=== PATIENT | female | born 1935 | race Caucasian/White ===

== ENCOUNTER 2020-07-11 08:23 | Inpatient (IN) | payer OTHER ==
[2020-07-11] MEDS ORDERED: LORazepam 2 MG/ML SDV VIAL IVPUSH ONE (09:24)
[2020-07-11] MEDS ORDERED: LORazepam 2 MG/ML SDV VIAL ONE (10:01)
[2020-07-11 10:23] LABS: BASO % 0.7 % (0-2.0); HEMATOCRIT 25.5 % (32.4-45.2); HEMOGLOBIN 8.3 GM/dL (10.7-15.3); LYMPH % 9.8 % (8-40); MCH 30.4 pg (25.7-33.7); MCHC 32.7 g/dl (32.0-36.0); MEAN CELL VOLUME 92.9 fl (80-96); MEAN PLT VOLUME 8.7 fl (7.5-11.1); MONO % 5.5 % (3.8-10.2); PLATELET COUNT 353 K/MM3 (134-434); RBC 2.74 M/mm3 (3.60-5.2); RDW 18.2 % (11.6-15.6); WHITE BLOOD COUNT 8.6 K/mm3 (4.0-10.0)
[2020-07-11 10:28] LABS: EPI CELLS 15 /uL (0-25.1); HYALINE CASTS 4 /uL (0-3.1); PH,URINE 6.5 (5.0-8.0); URINE APPEARANCE CLOUDY; URINE BACTERIA 190 /uL (0-1359); URINE BILIRUBIN NEGATIVE (NEGATIVE); URINE COLOR YELLOW; URINE GLUCOSE (UA) NEGATIVE (NEGATIVE); URINE KETONE NEGATIVE (NEGATIVE); URINE LEUK ESTERASE 2+ (NEGATIVE); URINE NITRITE NEGATIVE (NEGATIVE); URINE PROTEIN 1+ (NEGATIVE); URINE RBC 28 /uL (0-23.9); URINE UROBILINOGEN 0.2 mg/dL (0.2-1.0); URINE WBC 761 /uL (0-25.8)
[2020-07-11] MEDS ORDERED: VANCOMYCIN 1 GM in D5W (PRE-DOCKED) 1,000 MG/250 ML IVPB ONE (10:33)
[2020-07-11] MEDS ORDERED: PIPERACILLIN/TAZOB 4.5 GM 4.5 GM in DEXTROSE 5%-WATER 100 ML IVPB ONE (10:33)
[2020-07-11] MEDS ORDERED: AZITHROMYCIN IVPB 500 MG in DEXTROSE 5%-WATER - 250 ML IVPB ONE (10:33)
[2020-07-11 10:34] LABS: INR 0.98 (0.83-1.09); PROTHROMBIN TIME (PATIENT) 11.9 SEC (9.7-13.0)
[2020-07-11 10:37] LABS: ACTIVATED PTT 33.4 SECONDS (25.2-36.5)
[2020-07-11 10:40] LABS: CHLORIDE 99 mmol/L (98-107); SODIUM 138 mmol/L (136-145)
[2020-07-11 10:42] LABS: ALBUMIN 2.6 g/dl (3.4-5.0); ANION GAP 3 MMOL/L (8-16); BLOOD UREA NITROGEN 27.1 mg/dL (7-18); CALCIUM 8.7 mg/dL (8.5-10.1); CO2 36 mmol/L (21-32); GLUCOSE,RANDOM 95 mg/dL (74-106)
[2020-07-11] MEDS ORDERED: SODIUM CHLORIDE 2,504 ML IV ONE (10:44)
[2020-07-11 10:45] LABS: BILIRUBIN,DIRECT 0.1 mg/dL (0.0-0.2); CREATININE 0.6 mg/dL (0.55-1.3); SGOT/AST 39 U/L (15-37); SGPT/ALT 50 U/L (13-61)
[2020-07-11 10:47] LABS: BILIRUBIN,TOTAL < 0.1 mg/dL (0.2-1); TOT PROT 6.1 g/dl (6.4-8.2)
[2020-07-11 10:48] LABS: ALK PHOS 140 U/L (45-117)
[2020-07-11 10:51] LABS: LDH 277 U/L (84-246)
[2020-07-11] MEDS ORDERED: SODIUM CHLORIDE 0.9% 500 ML INFUS.BAG IV ONE (10:59)
[2020-07-11 11:43] LABS: YEAST 2+ (NEGATIVE)
[2020-07-11] MEDS ORDERED: PIPERACILLIN/TAZOB 4.5 GM 4.5 GM/100 ML BAG IVPB ONE (12:31)
[2020-07-11] MEDS ORDERED: AZITHROMYCIN IVPB 500 MG/250 ML BAG IVPB ONE (13:17)
[2020-07-11] MEDS ORDERED: VANCOMYCIN 1 GRAM (PRE-DOCKED) 1,000 MG/250 ML BAG IVPB ONE (13:17)
[2020-07-11] MEDS ORDERED: FUROSEMIDE 40 MG/4 ML INJECTABLE VIAL IVPUSH ONE (13:19)
[2020-07-11] MEDS ORDERED: FUROSEMIDE 40 MG/4 ML INJECTABLE VIAL ONE (14:06)
[2020-07-11] MEDS ORDERED: PIPERACILLIN/TAZOB 3.375 GM 3.375 GM in DEXTROSE 5%-WATER - 50 ML IVPB SCH (18:00)
[2020-07-11] MEDS ORDERED: PIPERACILLIN/TAZOB 3.375 GM 3.375 GM/50 ML BAG IVPB ONE (18:13)
[2020-07-11] MEDS ORDERED: ACETAMINOPHEN 650 MG/20.3 ML ORAL SOLUTION (CUPS) GT PRN (18:30)
[2020-07-12] MEDS ORDERED: PIPERACILLIN/TAZOB 3.375 GM 3.375 GM/50 ML BAG IVPB ONE ×3 (02:16→18:49)
[2020-07-12] MEDS: PIPERACILLIN/TAZOB 3.375 GM 3.375 GM in DEXTROSE 5%-WATER - 50 ML IVPB SCH ×3 (02:23→19:01)
[2020-07-12] MEDS ORDERED: ATORVASTATIN CA 20 MG TABLET (FP) ONE (09:40)
[2020-07-12] MEDS ORDERED: FOLIC ACID 1 MG TABLET (FP) ONE (09:41)
[2020-07-12] MEDS ORDERED: ENOXAPARIN NA (PORCINE) 40 MG/0.4 ML DISP.SYRIN SQ ONE (09:41)
[2020-07-12] MEDS: ENOXAPARIN NA (PORCINE) 40 MG/0.4 ML DISP.SYRIN SQ SCH (10:24)
[2020-07-12] MEDS: ATORVASTATIN CA 20 MG TABLET (FP) GT SCH (10:24)
[2020-07-12] MEDS: FOLIC ACID 1 MG TABLET (FP) GT SCH (10:24)
[2020-07-12] MEDS: LEVOTHYROXINE NA 88 MCG TABLET (FP) GT SCH (10:25)
[2020-07-12] MEDS: ATENOLOL 50 MG TABLET (FP) GT SCH (10:25)
[2020-07-12] MEDS: OLANZapine 5 MG TABLET GT SCH (10:43)
[2020-07-12 17:45] LABS: CALCIUM 8.5 mg/dL (8.5-10.1)
[2020-07-12 18:02] LABS: ALBUMIN 2.5 g/dl (3.4-5.0); BILIRUBIN,TOTAL 0.3 mg/dL (0.2-1); CREATININE 0.9 mg/dL (0.55-1.3); TOT PROT 5.6 g/dl (6.4-8.2)
[2020-07-13] MEDS ORDERED: PIPERACILLIN/TAZOB 3.375 GM 3.375 GM/50 ML BAG IVPB ONE ×2 (02:15→10:38)
[2020-07-13] MEDS: PIPERACILLIN/TAZOB 3.375 GM 3.375 GM in DEXTROSE 5%-WATER - 50 ML IVPB SCH ×2 (02:22→11:00)
[2020-07-13] MEDS ORDERED: ATORVASTATIN CA 20 MG TABLET (FP) ONE (10:37)
[2020-07-13] MEDS ORDERED: ENOXAPARIN NA (PORCINE) 40 MG/0.4 ML DISP.SYRIN SQ ONE (10:38)
[2020-07-13] MEDS ORDERED: FOLIC ACID 1 MG TABLET (FP) ONE (10:38)
[2020-07-13] MEDS: FOLIC ACID 1 MG TABLET (FP) GT SCH (11:00)
[2020-07-13] MEDS: ATENOLOL 50 MG TABLET (FP) GT SCH (11:00)
[2020-07-13] MEDS: ENOXAPARIN NA (PORCINE) 40 MG/0.4 ML DISP.SYRIN SQ SCH (11:00)
[2020-07-13] MEDS: LEVOTHYROXINE NA 88 MCG TABLET (FP) GT SCH (11:00)
[2020-07-13] MEDS: OLANZapine 5 MG TABLET GT SCH (11:13)
[2020-07-13] MEDS: ATORVASTATIN CA 20 MG TABLET (FP) GT SCH (11:13)
[2020-07-13 12:27] LABS: BASO % 0.8 % (0-2.0); HEMATOCRIT 22.4 % (32.4-45.2); HEMOGLOBIN 7.5 GM/dL (10.7-15.3); LYMPH % 17.2 % (8-40); MCH 30.9 pg (25.7-33.7); MCHC 33.4 g/dl (32.0-36.0); MEAN CELL VOLUME 92.4 fl (80-96); MEAN PLT VOLUME 8.9 fl (7.5-11.1); MONO % 7.7 % (3.8-10.2); NEUT % 74.3 % (42.8-82.8); PLATELET COUNT 279 K/MM3 (134-434); RBC 2.43 M/mm3 (3.60-5.2); RDW 18.3 % (11.6-15.6)
[2020-07-13 12:40] LABS: CALCIUM 8.4 mg/dL (8.5-10.1)
[2020-07-13 12:41] LABS: BLOOD UREA NITROGEN 28.1 mg/dL (7-18)
[2020-07-13 12:44] LABS: CREATININE 0.9 mg/dL (0.55-1.3)
[2020-07-13] MEDS ORDERED: WATER IVPB ONE (15:00)
[2020-07-13] MEDS ORDERED: DAPTOMYCIN 300 MG in SODIUM CHLORIDE 50 ML IVPB ONE (15:00)
[2020-07-13] MEDS ORDERED: DEXTROSE 5% IVPB ONE (15:00)
[2020-07-13] MEDS ORDERED: DAPTOMYCIN IVPB ONE (15:00)
[2020-07-14] MEDS ORDERED: PT OWN MED DRAWER 7, Y5N ONE (09:25)
[2020-07-14] MEDS: ATORVASTATIN CA 20 MG TABLET (FP) GT SCH (10:12)
[2020-07-14] MEDS: DAPTOMYCIN 300 MG in SODIUM CHLORIDE 50 ML IVPB SCH (10:12)
[2020-07-14] MEDS: ENOXAPARIN NA (PORCINE) 40 MG/0.4 ML DISP.SYRIN SQ SCH (10:12)
[2020-07-14] MEDS: OLANZapine 5 MG TABLET GT SCH (10:13)
[2020-07-14] MEDS: FOLIC ACID 1 MG TABLET (FP) GT SCH (10:13)
[2020-07-14] MEDS: LEVOTHYROXINE NA 88 MCG TABLET (FP) GT SCH (12:31)
[2020-07-14] MEDS: ATENOLOL 50 MG TABLET (FP) GT SCH (12:31)
[2020-07-15] MEDS: LEVOTHYROXINE NA 88 MCG TABLET (FP) GT SCH (06:15)
[2020-07-15] MEDS ORDERED: PT OWN MED DRAWER 7, Y5N ONE (08:55)
[2020-07-15] MEDS: FOLIC ACID 1 MG TABLET (FP) GT SCH (09:20)
[2020-07-15] MEDS: OLANZapine 5 MG TABLET GT SCH (09:20)
[2020-07-15] MEDS: ENOXAPARIN NA (PORCINE) 40 MG/0.4 ML DISP.SYRIN SQ SCH (09:20)
[2020-07-15] MEDS: ATORVASTATIN CA 20 MG TABLET (FP) GT SCH (09:20)
[2020-07-15] MEDS: AMINO ACIDS/PROTEIN HYDROLYS 30 ML LIQUID.PKT PEG SCH (09:20)
[2020-07-15] MEDS: ATENOLOL 50 MG TABLET (FP) GT SCH (09:23)
[2020-07-15 09:34] LABS: BASO % 0.8 % (0-2.0); HEMATOCRIT 22.7 % (32.4-45.2); HEMOGLOBIN 7.3 GM/dL (10.7-15.3); LYMPH % 24.8 % (8-40); MEAN CELL VOLUME 93.7 fl (80-96); MEAN PLT VOLUME 8.7 fl (7.5-11.1); MONO % 11.6 % (3.8-10.2); NEUT % 62.8 % (42.8-82.8); PLATELET COUNT 251 K/MM3 (134-434); RBC 2.42 M/mm3 (3.60-5.2); RDW 19.3 % (11.6-15.6)
[2020-07-15 10:28] LABS: N-TERMINAL BNP 8021.6 pg/ml (5-450)
[2020-07-15] MEDS: DAPTOMYCIN 300 MG in SODIUM CHLORIDE 50 ML IVPB SCH (11:28)
[2020-07-15] MEDS ORDERED: FUROSEMIDE 40 MG/4 ML INJECTABLE VIAL IVPUSH ONE (11:45)
[2020-07-16] MEDS: LEVOTHYROXINE NA 88 MCG TABLET (FP) GT SCH (06:06)
[2020-07-16 09:01] LABS: BASO % 0.6 % (0-2.0); HEMATOCRIT 22.6 % (32.4-45.2); HEMOGLOBIN 7.3 GM/dL (10.7-15.3); MCH 30.3 pg (25.7-33.7); MCHC 32.4 g/dl (32.0-36.0); MEAN CELL VOLUME 93.6 fl (80-96); MEAN PLT VOLUME 8.7 fl (7.5-11.1); MONO % 11.9 % (3.8-10.2); NEUT % 66.5 % (42.8-82.8); PLATELET COUNT 229 K/MM3 (134-434); RBC 2.41 M/mm3 (3.60-5.2); RDW 19.2 % (11.6-15.6); WHITE BLOOD COUNT 6.3 K/mm3 (4.0-10.0)
[2020-07-16] MEDS ORDERED: PT OWN MED DRAWER 7, Y5N ONE (09:17)
[2020-07-16] MEDS: ENOXAPARIN NA (PORCINE) 40 MG/0.4 ML DISP.SYRIN SQ SCH (09:19)
[2020-07-16] MEDS: AMINO ACIDS/PROTEIN HYDROLYS 30 ML LIQUID.PKT PEG SCH (09:19)
[2020-07-16] MEDS: FOLIC ACID 1 MG TABLET (FP) GT SCH (09:19)
[2020-07-16] MEDS: FUROSEMIDE 40 MG/4 ML INJECTABLE VIAL IVPUSH SCH (09:19)
[2020-07-16] MEDS: ATORVASTATIN CA 20 MG TABLET (FP) GT SCH (09:19)
[2020-07-16] MEDS: OLANZapine 5 MG TABLET GT SCH (09:19)
[2020-07-16] MEDS: ATENOLOL 50 MG TABLET (FP) GT SCH (09:20)
[2020-07-16 09:23] LABS: ALBUMIN 2.6 g/dl (3.4-5.0); BLOOD UREA NITROGEN 33.5 mg/dL (7-18); CALCIUM 8.8 mg/dL (8.5-10.1); MAGNESIUM 2.1 mg/dL (1.8-2.4)
[2020-07-16 09:26] LABS: CREATININE 0.9 mg/dL (0.55-1.3)
[2020-07-16 09:27] LABS: BILIRUBIN,TOTAL 0.3 mg/dL (0.2-1); TOT PROT 6.1 g/dl (6.4-8.2)
[2020-07-16 09:29] LABS: PHOSPHOROUS 4.7 mg/dL (2.5-4.9)
[2020-07-16] MEDS ORDERED: PNEUMOC 13-VAL CONJ-DIP CRM/PF 0.5 ML DISP.SYRIN IM ONE (10:00)
[2020-07-16] MEDS: DAPTOMYCIN 300 MG in SODIUM CHLORIDE 50 ML IVPB SCH (11:40)
[2020-07-17] MEDS: LEVOTHYROXINE NA 88 MCG TABLET (FP) GT SCH (06:37)
[2020-07-17] MEDS ORDERED: PT OWN MED DRAWER 7, Y5N ONE ×2 (09:17→11:17)
[2020-07-17] MEDS: DAPTOMYCIN 300 MG in SODIUM CHLORIDE 50 ML IVPB SCH (09:57)
[2020-07-17] MEDS: FUROSEMIDE 40 MG/4 ML INJECTABLE VIAL IVPUSH SCH ×2 (09:58→15:18)
[2020-07-17] MEDS: FOLIC ACID 1 MG TABLET (FP) GT SCH (09:58)
[2020-07-17] MEDS: OLANZapine 5 MG TABLET GT SCH (10:00)
[2020-07-17] MEDS: ATORVASTATIN CA 20 MG TABLET (FP) GT SCH (10:00)
[2020-07-17] MEDS: ENOXAPARIN NA (PORCINE) 40 MG/0.4 ML DISP.SYRIN SQ SCH (10:00)
[2020-07-17] MEDS: AMINO ACIDS/PROTEIN HYDROLYS 30 ML LIQUID.PKT PEG SCH ×2 (10:02→17:54)
[2020-07-17] MEDS: ATENOLOL 50 MG TABLET (FP) GT SCH (12:28)
[2020-07-17 15:04] VITALS: BMI 31.9
[2020-07-17 16:16] LABS: HEMATOCRIT 21.8 % (32.4-45.2); HEMOGLOBIN 7.2 GM/dL (10.7-15.3); MCH 30.9 pg (25.7-33.7); MCHC 33.1 g/dl (32.0-36.0); MEAN CELL VOLUME 93.2 fl (80-96); MEAN PLT VOLUME 8.9 fl (7.5-11.1); PLATELET COUNT 181 K/MM3 (134-434); RBC 2.34 M/mm3 (3.60-5.2); RDW 18.8 % (11.6-15.6); WHITE BLOOD COUNT 7.9 K/mm3 (4.0-10.0)
[2020-07-18] MEDS: FUROSEMIDE 40 MG/4 ML INJECTABLE VIAL IVPUSH SCH ×2 (05:09→13:46)
[2020-07-18] MEDS: LEVOTHYROXINE NA 88 MCG TABLET (FP) GT SCH (06:17)
[2020-07-18] MEDS ORDERED: PT OWN MED DRAWER 7, Y5N ONE (08:55)
[2020-07-18] MEDS: AMINO ACIDS/PROTEIN HYDROLYS 30 ML LIQUID.PKT PEG SCH ×2 (08:58→18:04)
[2020-07-18] MEDS: ATORVASTATIN CA 20 MG TABLET (FP) GT SCH (08:59)
[2020-07-18] MEDS: ENOXAPARIN NA (PORCINE) 40 MG/0.4 ML DISP.SYRIN SQ SCH (08:59)
[2020-07-18] MEDS: ATENOLOL 50 MG TABLET (FP) GT SCH (08:59)
[2020-07-18] MEDS: OLANZapine 5 MG TABLET GT SCH (08:59)
[2020-07-18] MEDS: FOLIC ACID 1 MG TABLET (FP) GT SCH (08:59)
[2020-07-18 10:02] LABS: BASO % 0.6 % (0-2.0); HEMATOCRIT 21.2 % (32.4-45.2); HEMOGLOBIN 7.1 GM/dL (10.7-15.3); LYMPH % 16.7 % (8-40); MCH 30.8 pg (25.7-33.7); MCHC 33.3 g/dl (32.0-36.0); MEAN CELL VOLUME 92.5 fl (80-96); MEAN PLT VOLUME 8.5 fl (7.5-11.1); MONO % 10.4 % (3.8-10.2); NEUT % 72.3 % (42.8-82.8); PLATELET COUNT 167 K/MM3 (134-434); RBC 2.29 M/mm3 (3.60-5.2); RDW 19.4 % (11.6-15.6); WHITE BLOOD COUNT 6.1 K/mm3 (4.0-10.0)
[2020-07-18 10:22] LABS: CALCIUM 8.8 mg/dL (8.5-10.1)
[2020-07-18 10:23] LABS: ALBUMIN 2.5 g/dl (3.4-5.0); BLOOD UREA NITROGEN 40.2 mg/dL (7-18)
[2020-07-18 10:24] LABS: MAGNESIUM 1.8 mg/dL (1.8-2.4)
[2020-07-18 10:26] LABS: CREATININE 0.9 mg/dL (0.55-1.3); PHOSPHOROUS 4.2 mg/dL (2.5-4.9)
[2020-07-18 10:27] LABS: TOT PROT 5.9 g/dl (6.4-8.2)
[2020-07-18 10:30] LABS: BILIRUBIN,TOTAL 0.3 mg/dL (0.2-1)
[2020-07-18 11:05] LABS: PH,URINE 6.5 (5.0-8.0); URINE APPEARANCE CLEAR; URINE BILIRUBIN NEGATIVE (NEGATIVE); URINE COLOR YELLOW; URINE GLUCOSE (UA) NEGATIVE (NEGATIVE); URINE KETONE NEGATIVE (NEGATIVE); URINE LEUK ESTERASE NEGATIVE (NEGATIVE); URINE NITRITE NEGATIVE (NEGATIVE); URINE PROTEIN NEGATIVE (NEGATIVE); URINE UROBILINOGEN 0.2 mg/dL (0.2-1.0)
[2020-07-18] MEDS: DAPTOMYCIN 300 MG in SODIUM CHLORIDE 50 ML IVPB SCH (11:13)
[2020-07-19] MEDS: FUROSEMIDE 40 MG/4 ML INJECTABLE VIAL IVPUSH SCH ×2 (06:37→14:21)
[2020-07-19] MEDS: LEVOTHYROXINE NA 88 MCG TABLET (FP) GT SCH (06:38)
[2020-07-19 09:24] LABS: BASO % 0.7 % (0-2.0); HEMATOCRIT 21.4 % (32.4-45.2); MCH 30.6 pg (25.7-33.7); MEAN CELL VOLUME 92.8 fl (80-96); MONO % 10.1 % (3.8-10.2); NEUT % 72.2 % (42.8-82.8); PLATELET COUNT 164 K/MM3 (134-434); RDW 18.9 % (11.6-15.6); WHITE BLOOD COUNT 5.2 K/mm3 (4.0-10.0)
[2020-07-19] MEDS: AMINO ACIDS/PROTEIN HYDROLYS 30 ML LIQUID.PKT PEG SCH ×2 (09:46→17:04)
[2020-07-19] MEDS: OLANZapine 5 MG TABLET GT SCH (09:46)
[2020-07-19] MEDS: ATORVASTATIN CA 20 MG TABLET (FP) GT SCH (09:46)
[2020-07-19] MEDS: FOLIC ACID 1 MG TABLET (FP) GT SCH (09:46)
[2020-07-19 09:50] LABS: ALBUMIN 2.5 g/dl (3.4-5.0)
[2020-07-19 09:51] LABS: CALCIUM 8.8 mg/dL (8.5-10.1)
[2020-07-19] MEDS: ATENOLOL 50 MG TABLET (FP) GT SCH (09:54)
[2020-07-19 09:55] LABS: CREATININE 0.9 mg/dL (0.55-1.3); PHOSPHOROUS 4.2 mg/dL (2.5-4.9)
[2020-07-19 09:56] LABS: BILIRUBIN,TOTAL 0.3 mg/dL (0.2-1); TOT PROT 5.9 g/dl (6.4-8.2)
[2020-07-19] MEDS: DAPTOMYCIN 300 MG in SODIUM CHLORIDE 50 ML IVPB SCH ×2 (10:54→11:53)
[2020-07-19] MEDS ORDERED: IRON SUCROSE INJECTION 200 MG in SODIUM CHLORIDE 90 ML IVPB ONE (16:00)
[2020-07-20] MEDS: LEVOTHYROXINE NA 88 MCG TABLET (FP) GT SCH (06:12)
[2020-07-20] MEDS ORDERED: PT OWN MED DRAWER 7, Y5N ONE (09:11)
[2020-07-20] MEDS: ENOXAPARIN NA (PORCINE) 40 MG/0.4 ML DISP.SYRIN SQ SCH (09:14)
[2020-07-20] MEDS: FOLIC ACID 1 MG TABLET (FP) GT SCH (09:14)
[2020-07-20] MEDS: ATORVASTATIN CA 20 MG TABLET (FP) GT SCH (09:14)
[2020-07-20] MEDS: ATENOLOL 50 MG TABLET (FP) GT SCH (09:14)
[2020-07-20] MEDS: OLANZapine 5 MG TABLET GT SCH (09:14)
[2020-07-20] MEDS: FUROSEMIDE 40 MG TABLET (FP) PO SCH (09:14)
[2020-07-20] MEDS: AMINO ACIDS/PROTEIN HYDROLYS 30 ML LIQUID.PKT PEG SCH ×2 (09:15→16:33)
[2020-07-20] MEDS: DAPTOMYCIN 300 MG in SODIUM CHLORIDE 50 ML IVPB SCH (09:16)
[2020-07-20 10:46] LABS: BASO % 0.8 % (0-2.0); LYMPH % 20.2 % (8-40); MCH 30.4 pg (25.7-33.7); MCHC 32.9 g/dl (32.0-36.0); MEAN CELL VOLUME 92.5 fl (80-96); MEAN PLT VOLUME 8.8 fl (7.5-11.1); MONO % 11.2 % (3.8-10.2); NEUT % 67.8 % (42.8-82.8); PLATELET COUNT 165 K/MM3 (134-434); RBC 2.27 M/mm3 (3.60-5.2); RDW 18.3 % (11.6-15.6); WHITE BLOOD COUNT 5.4 K/mm3 (4.0-10.0)
[2020-07-20 10:50] LABS: HEMOGLOBIN 6.9 GM/dL (10.7-15.3)
[2020-07-20 11:04] LABS: BLOOD UREA NITROGEN 44.1 mg/dL (7-18); CALCIUM 8.3 mg/dL (8.5-10.1)
[2020-07-20 11:08] LABS: CREATININE 0.9 mg/dL (0.55-1.3)
[2020-07-20] MEDS: LACTOBACILLUS ACIDOPHILUS 1 TABLET GT SCH (16:33)
[2020-07-21] MEDS ORDERED: amLODIPine BESYLATE 5 MG TABLET (FP) GT ONE (06:00)
[2020-07-21] MEDS: LEVOTHYROXINE NA 88 MCG TABLET (FP) GT SCH (06:09)
[2020-07-21] MEDS ORDERED: PT OWN MED DRAWER 7, Y5N ONE ×2 (09:16→10:53)
[2020-07-21] MEDS ORDERED: amLODIPine BESYLATE 10 MG TABLET (FP) PO SCH (10:00)
[2020-07-21 10:01] LABS: BASO % 1.1 % (0-2.0); HEMATOCRIT 23.4 % (32.4-45.2); HEMOGLOBIN 7.7 GM/dL (10.7-15.3); LYMPH % 20.2 % (8-40); MCH 30.1 pg (25.7-33.7); MCHC 32.9 g/dl (32.0-36.0); MEAN CELL VOLUME 91.4 fl (80-96); MEAN PLT VOLUME 9.1 fl (7.5-11.1); MONO % 10.1 % (3.8-10.2); NEUT % 68.6 % (42.8-82.8); PLATELET COUNT 160 K/MM3 (134-434); RBC 2.56 M/mm3 (3.60-5.2); RDW 17.9 % (11.6-15.6); WHITE BLOOD COUNT 4.7 K/mm3 (4.0-10.0)
[2020-07-21 10:37] LABS: CALCIUM 8.4 mg/dL (8.5-10.1)
[2020-07-21 10:38] LABS: BLOOD UREA NITROGEN 49.9 mg/dL (7-18)
[2020-07-21 10:41] LABS: CREATININE 0.9 mg/dL (0.55-1.3)
[2020-07-21] MEDS: LACTOBACILLUS ACIDOPHILUS 1 TABLET GT SCH (10:49)
[2020-07-21] MEDS: AMINO ACIDS/PROTEIN HYDROLYS 30 ML LIQUID.PKT PEG SCH (10:49)
[2020-07-21] MEDS: OLANZapine 5 MG TABLET GT SCH (10:50)
[2020-07-21] MEDS: ATORVASTATIN CA 20 MG TABLET (FP) GT SCH (10:50)
[2020-07-21] MEDS: FOLIC ACID 1 MG TABLET (FP) GT SCH (10:50)
[2020-07-21] MEDS: ATENOLOL 50 MG TABLET (FP) GT SCH (10:50)
[2020-07-21] MEDS: FUROSEMIDE 40 MG TABLET (FP) PO SCH (10:50)
[2020-07-21] MEDS: ENOXAPARIN NA (PORCINE) 40 MG/0.4 ML DISP.SYRIN SQ SCH (10:50)
[2020-07-21 12:21] VITALS: PULSE 73
[2020-07-21 15:39] VITALS: BP 183/82; TEMP 99.5
== END 2020-07-21 16:16 | DRG 207 ==
LOC: JER 08:23 → JERBED 12:33 → J5S 07-14 04:17
PROVIDERS: ADMIT Internal Medicine
PROC: 5A1955Z Respiratory Ventilation, Greater than 96 Consecutive Hours (ICD-10-PCS; principal; 2020-07-11)
PROC: 3E0G76Z Introduction of Nutritional Substance into Upper GI, Via Natural or Artificial Opening (ICD-10-PCS; 2020-07-11)
PROC: 02HV33Z Insertion of Infusion Device into Superior Vena Cava, Percutaneous Approach (ICD-10-PCS; 2020-07-16)
PROC: B548ZZA Ultrasonography of Superior Vena Cava, Guidance (ICD-10-PCS; 2020-07-16)
DX: J96.20 Acute and chronic respiratory failure, unspecified whether with hypoxia or hypercapnia (principal); T83.518A Infection and inflammatory reaction due to other urinary catheter, initial encounter; N39.0 Urinary tract infection, site not specified; Z99.11 Dependence on respirator [ventilator] status; I50.32 Chronic diastolic (congestive) heart failure; R04.2 Hemoptysis; E78.5 Hyperlipidemia, unspecified; Z93.1 Gastrostomy status; F03.90 Unspecified dementia, unspecified severity, without behavioral disturbance, psychotic disturbance, mood disturbance, and anxiety; I11.0 Hypertensive heart disease with heart failure; E03.9 Hypothyroidism, unspecified; Z93.0 Tracheostomy status; R68.0 Hypothermia, not associated with low environmental temperature; Y84.6 Urinary catheterization as the cause of abnormal reaction of the patient, or of later complication, without mention of misadventure at the time of the procedure; D64.9 Anemia, unspecified
CPT/HCPCS: 36415; 36430; 36569; 71045-TC-FY; 77001-TC-FY; 80048; 80053; 81003; 82248; 82272; 82550; 82728; 83540; 83550; 83605; 83615; 83735; 83880; 84100; 84484; 85025; 85027; 85610; 85730; 86140; 86850; 86900; 86901; 86922; 87040; 87086; 87186; 90670; 93005; 93010; 93306-TC; 94002; 99285-25; C1751; C9803; J0878; J1756; P9058; U0003

== ENCOUNTER 2020-08-03 20:29 | Inpatient (IN) | payer OTHER ==
[2020-08-03 21:10] LABS: BASO % 0.2 % (0-2.0); HEMATOCRIT 30.6 % (32.4-45.2); HEMOGLOBIN 9.9 GM/dL (10.7-15.3); LYMPH % 16.9 % (8-40); MCH 30.1 pg (25.7-33.7); MCHC 32.4 g/dl (32.0-36.0); MEAN PLT VOLUME 9.6 fl (7.5-11.1); MONO % 5.2 % (3.8-10.2); NEUT % 77.7 % (42.8-82.8); PLATELET COUNT 260 K/MM3 (134-434); RBC 3.29 M/mm3 (3.60-5.2); RDW 18.7 % (11.6-15.6); WHITE BLOOD COUNT 8.1 K/mm3 (4.0-10.0)
[2020-08-03 21:23] LABS: INR 0.98 (0.83-1.09); PROTHROMBIN TIME (PATIENT) 12.1 SEC (9.7-13.0)
[2020-08-03 21:26] LABS: ACTIVATED PTT 43.4 SECONDS (25.2-36.5)
[2020-08-03 21:32] LABS: CHLORIDE 101 mmol/L (98-107); POTASSIUM 4.8 mmol/L (3.5-5.1); SODIUM 136 mmol/L (136-145)
[2020-08-03 21:34] LABS: CALCIUM 9.2 mg/dL (8.5-10.1)
[2020-08-03 21:35] LABS: ALBUMIN 3.1 g/dl (3.4-5.0); ANION GAP 6 MMOL/L (8-16); BLOOD UREA NITROGEN 67.2 mg/dL (7-18); CO2 29 mmol/L (21-32); GLUCOSE,RANDOM 130 mg/dL (74-106)
[2020-08-03 21:38] LABS: CREATININE 0.9 mg/dL (0.55-1.3); SGOT/AST 78 U/L (15-37); SGPT/ALT 164 U/L (13-61)
[2020-08-03 21:39] LABS: BILIRUBIN,TOTAL 0.2 mg/dL (0.2-1)
[2020-08-03 21:40] LABS: TOT PROT 6.7 g/dl (6.4-8.2)
[2020-08-03 21:41] LABS: ALK PHOS 144 U/L (45-117)
[2020-08-03] MEDS ORDERED: VANCOMYCIN 1 GM in D5W (PRE-DOCKED) 1,000 MG/250 ML IVPB ONE (23:20)
[2020-08-03] MEDS ORDERED: PIPERACILLIN/TAZOB 3.375 GM 3.375 GM in DEXTROSE 5%-WATER - 50 ML IVPB ONE (23:20)
[2020-08-04] MEDS ORDERED: PIPERACILLIN/TAZOB 3.375 GM 3.375 GM/50 ML BAG IVPB ONE (00:04)
[2020-08-04] MEDS ORDERED: GLUCAGON 1 MG KIT IVPUSH ONE (00:11)
[2020-08-04] MEDS ORDERED: GLUCAGON 1 MG KIT ONE (00:14)
[2020-08-04] MEDS ORDERED: CALCIUM GLUCONATE 10% - 1,000 MG/10 ML VIAL IVPB ONE (00:16)
[2020-08-04] MEDS ORDERED: CALCIUM GLUCONATE 10% - 1,000 MG/10 ML VIAL ONE (00:23)
[2020-08-04] MEDS ORDERED: ENOXAPARIN NA (PORCINE) 40 MG/0.4 ML DISP.SYRIN SQ SCH (00:30)
[2020-08-04] MEDS ORDERED: SODIUM CHLORIDE 0.9% 500 ML INFUS.BAG IV ONE ×2 (00:52→04:03)
[2020-08-04] MEDS ORDERED: VANCOMYCIN 1 GRAM (PRE-DOCKED) 1,000 MG/250 ML BAG IVPB ONE (01:07)
[2020-08-04] MEDS ORDERED: HEPARIN NA (PORCINE) 5,000 UNITS/ML 1ML VIAL SQ SCH (02:00)
[2020-08-04] MEDS ORDERED: DOPAMINE 400 MG/D5W - 400,000 MCG/250 ML INFUS.BAG IVPB SCH (04:15)
[2020-08-04] MEDS: DOPAMINE 400 MG/D5W - 400,000 MCG/250 ML INFUS.BAG IVPB SCH ×2 (04:42→23:26)
[2020-08-04] MEDS ORDERED: SODIUM CHLORIDE 1,000 ML IV STA (06:25)
[2020-08-04] MEDS: ENOXAPARIN NA (PORCINE) 40 MG/0.4 ML DISP.SYRIN SQ SCH (09:45)
[2020-08-04] MEDS: MUPIROCIN 2% TOPICAL OINTMENT FOR DECOLONIZATION NS SCH ×2 (09:45→22:55)
[2020-08-04 09:59] LABS: BASO % 0.2 % (0-2.0); HEMATOCRIT 29.8 % (32.4-45.2); HEMOGLOBIN 9.4 GM/dL (10.7-15.3); LYMPH % 6.5 % (8-40); MCH 29.6 pg (25.7-33.7); MCHC 31.6 g/dl (32.0-36.0); MEAN CELL VOLUME 93.7 fl (80-96); MEAN PLT VOLUME 10.6 fl (7.5-11.1); MONO % 3.4 % (3.8-10.2); NEUT % 89.9 % (42.8-82.8); PLATELET COUNT 311 K/MM3 (134-434); RBC 3.19 M/mm3 (3.60-5.2); RDW 19.4 % (11.6-15.6); WHITE BLOOD COUNT 13.1 K/mm3 (4.0-10.0)
[2020-08-04] MEDS ORDERED: PIPERACILLIN/TAZOB 3.375 GM 3.375 GM in DEXTROSE 5%-WATER - 50 ML IVPB SCH (10:00)
[2020-08-04 10:03] LABS: INR 0.95 (0.83-1.09); PROTHROMBIN TIME (PATIENT) 11.5 SEC (9.7-13.0)
[2020-08-04 10:06] LABS: ACTIVATED PTT 37.6 SECONDS (25.2-36.5)
[2020-08-04 10:24] LABS: POTASSIUM 5.5 mmol/L (3.5-5.1)
[2020-08-04 10:27] LABS: BLOOD UREA NITROGEN 73.7 mg/dL (7-18); MAGNESIUM 2.5 mg/dL (1.8-2.4)
[2020-08-04 10:30] LABS: PHOSPHOROUS 5.9 mg/dL (2.5-4.9)
[2020-08-04 10:31] LABS: BILIRUBIN,TOTAL 0.3 mg/dL (0.2-1); TOT PROT 6.6 g/dl (6.4-8.2)
[2020-08-04 10:33] LABS: CALCIUM 9.8 mg/dL (8.5-10.1)
[2020-08-04 11:10] LABS: ANISOCYTOSIS 1+; MACROCYTOSIS 1+
[2020-08-04 17:30] LABS: EPI CELLS >36 /uL (0-25.1); HYALINE CASTS 20 /uL (0-3.1); PH,URINE 6.5 (5.0-8.0); URINE APPEARANCE TURBID; URINE BACTERIA 200 /uL (0-1359); URINE BILIRUBIN NEGATIVE (NEGATIVE); URINE COLOR YELLOW; URINE GLUCOSE (UA) NEGATIVE (NEGATIVE); URINE KETONE NEGATIVE (NEGATIVE); URINE LEUK ESTERASE 3+ (NEGATIVE); URINE NITRITE NEGATIVE (NEGATIVE); URINE PROTEIN 1+ (NEGATIVE); URINE RBC 132 /uL (0-23.9); URINE UROBILINOGEN 0.2 mg/dL (0.2-1.0); URINE WBC 5944 /uL (0-25.8)
[2020-08-04] MEDS: PIPERACILLIN/TAZOB 3.375 GM 3.375 GM in DEXTROSE 5%-WATER - 50 ML IVPB SCH ×2 (17:48→17:51)
[2020-08-04] MEDS ORDERED: DEXTROSE 5%-WATER - 50 ML IVPB ONE (17:50)
[2020-08-04] MEDS ORDERED: PIPERACILLIN/TAZOBACTAM 3.375 GM VIAL IVPB ONE (17:50)
[2020-08-04] MEDS: CHLORHEXIDINE GLUCONATE 4% CLEANSER FOR DECOLONIZATION TP SCH (22:55)
[2020-08-05] MEDS ORDERED: PIPERACILLIN/TAZOBACTAM 3.375 GM VIAL IVPB ONE ×3 (00:49→18:43)
[2020-08-05] MEDS ORDERED: DEXTROSE 5%-WATER - 50 ML IVPB ONE ×3 (00:49→18:43)
[2020-08-05] MEDS: PIPERACILLIN/TAZOB 3.375 GM 3.375 GM in DEXTROSE 5%-WATER - 50 ML IVPB SCH ×3 (01:01→18:49)
[2020-08-05] MEDS: DOPAMINE 400 MG/D5W - 400,000 MCG/250 ML INFUS.BAG IVPB SCH ×5 (07:07→16:08)
[2020-08-05] MEDS: ENOXAPARIN NA (PORCINE) 40 MG/0.4 ML DISP.SYRIN SQ SCH (09:56)
[2020-08-05] MEDS: MUPIROCIN 2% TOPICAL OINTMENT FOR DECOLONIZATION NS SCH (09:56)
[2020-08-05 13:14] LABS: BASO % 0.5 % (0-2.0); HEMATOCRIT 27.3 % (32.4-45.2); HEMOGLOBIN 8.9 GM/dL (10.7-15.3); LYMPH % 14.2 % (8-40); MCH 30.2 pg (25.7-33.7); MCHC 32.4 g/dl (32.0-36.0); MEAN CELL VOLUME 93.2 fl (80-96); MEAN PLT VOLUME 10.2 fl (7.5-11.1); MONO % 6.7 % (3.8-10.2); NEUT % 78.6 % (42.8-82.8); PLATELET COUNT 252 K/MM3 (134-434); RBC 2.93 M/mm3 (3.60-5.2); RDW 19.1 % (11.6-15.6); WHITE BLOOD COUNT 10.9 K/mm3 (4.0-10.0)
[2020-08-05 13:21] LABS: INR 0.98 (0.83-1.09); PROTHROMBIN TIME (PATIENT) 12.1 SEC (9.7-13.0)
[2020-08-05 13:24] LABS: ACTIVATED PTT 38.1 SECONDS (25.2-36.5)
[2020-08-05 13:27] LABS: POTASSIUM 5.6 mmol/L (3.5-5.1)
[2020-08-05 13:29] LABS: ALBUMIN 2.8 g/dl (3.4-5.0); CALCIUM 9.1 mg/dL (8.5-10.1)
[2020-08-05 13:30] LABS: BLOOD UREA NITROGEN 80.6 mg/dL (7-18); MAGNESIUM 2.7 mg/dL (1.8-2.4)
[2020-08-05 13:33] LABS: CREATININE 1.7 mg/dL (0.55-1.3); PHOSPHOROUS 6.2 mg/dL (2.5-4.9)
[2020-08-05 13:34] LABS: BILIRUBIN,TOTAL 0.7 mg/dL (0.2-1); TOT PROT 6.5 g/dl (6.4-8.2)
[2020-08-06 07:59] LABS: HEMATOCRIT 25.4 % (32.4-45.2); HEMOGLOBIN 8.5 GM/dL (10.7-15.3); MCH 30.9 pg (25.7-33.7); MCHC 33.2 g/dl (32.0-36.0); MEAN CELL VOLUME 92.9 fl (80-96); MEAN PLT VOLUME 9.1 fl (7.5-11.1); PLATELET COUNT 202 K/MM3 (134-434); RBC 2.74 M/mm3 (3.60-5.2); RDW 18.6 % (11.6-15.6); WHITE BLOOD COUNT 8.3 K/mm3 (4.0-10.0)
[2020-08-06 08:27] LABS: POTASSIUM 5.1 mmol/L (3.5-5.1)
[2020-08-06 08:36] LABS: BLOOD UREA NITROGEN 74.1 mg/dL (7-18)
[2020-08-06 08:37] LABS: CALCIUM 9.1 mg/dL (8.5-10.1); CREATININE 1.5 mg/dL (0.55-1.3); PHOSPHOROUS 5.8 mg/dL (2.5-4.9)
[2020-08-06 08:38] LABS: MAGNESIUM 2.7 mg/dL (1.8-2.4)
[2020-08-06] MEDS ORDERED: DEXTROSE 5%-WATER - 50 ML IVPB ONE (09:08)
[2020-08-06] MEDS ORDERED: PIPERACILLIN/TAZOBACTAM 3.375 GM VIAL IVPB ONE (09:08)
[2020-08-06] MEDS: PIPERACILLIN/TAZOB 3.375 GM 3.375 GM in DEXTROSE 5%-WATER - 50 ML IVPB SCH ×3 (10:24→19:05)
[2020-08-06] MEDS: ENOXAPARIN NA (PORCINE) 40 MG/0.4 ML DISP.SYRIN SQ SCH (10:24)
[2020-08-06] MEDS: MUPIROCIN 2% TOPICAL OINTMENT FOR DECOLONIZATION NS SCH ×2 (11:21→23:02)
[2020-08-06] MEDS: CHLORHEXIDINE GLUCONATE 4% CLEANSER FOR DECOLONIZATION TP SCH (23:02)
[2020-08-07] MEDS ORDERED: DEXTROSE 5%-WATER - 50 ML IVPB ONE ×2 (02:33→09:59)
[2020-08-07] MEDS ORDERED: PIPERACILLIN/TAZOBACTAM 3.375 GM VIAL IVPB ONE ×2 (02:33→09:59)
[2020-08-07] MEDS: PIPERACILLIN/TAZOB 3.375 GM 3.375 GM in DEXTROSE 5%-WATER - 50 ML IVPB SCH ×3 (03:11→18:54)
[2020-08-07] MEDS: MUPIROCIN 2% TOPICAL OINTMENT FOR DECOLONIZATION NS SCH ×2 (10:03→23:18)
[2020-08-07] MEDS: ENOXAPARIN NA (PORCINE) 40 MG/0.4 ML DISP.SYRIN SQ SCH (10:03)
[2020-08-07 12:57] LABS: BASO % 0.4 % (0-2.0); HEMATOCRIT 26.9 % (32.4-45.2); HEMOGLOBIN 8.6 GM/dL (10.7-15.3); LYMPH % 13.4 % (8-40); MCH 30.1 pg (25.7-33.7); MEAN CELL VOLUME 94.1 fl (80-96); MEAN PLT VOLUME 9.3 fl (7.5-11.1); MONO % 8.2 % (3.8-10.2); PLATELET COUNT 192 K/MM3 (134-434); RBC 2.86 M/mm3 (3.60-5.2); RDW 18.9 % (11.6-15.6)
[2020-08-07 13:10] LABS: POTASSIUM 4.8 mmol/L (3.5-5.1)
[2020-08-07 13:12] LABS: ALBUMIN 2.9 g/dl (3.4-5.0); BLOOD UREA NITROGEN 63.3 mg/dL (7-18); MAGNESIUM 2.7 mg/dL (1.8-2.4)
[2020-08-07 13:15] LABS: PHOSPHOROUS 4.9 mg/dL (2.5-4.9)
[2020-08-07 13:16] LABS: CREATININE 1.4 mg/dL (0.55-1.3)
[2020-08-07 13:17] LABS: BILIRUBIN,TOTAL 0.6 mg/dL (0.2-1); TOT PROT 6.4 g/dl (6.4-8.2)
[2020-08-07] MEDS ORDERED: DEXTROSE 50%-WATER - 25 GM/50 ML VIAL ONE (15:39)
[2020-08-07] MEDS ORDERED: DEXTROSE 50%-WATER - 25 GM/50 ML VIAL IVPUSH ONE (15:58)
[2020-08-07] MEDS: AMINO ACIDS/PROTEIN HYDROLYS 30 ML LIQUID.PKT PO SCH (17:50)
[2020-08-07] MEDS: CHLORHEXIDINE GLUCONATE 4% CLEANSER FOR DECOLONIZATION TP SCH (23:18)
[2020-08-08] MEDS: PIPERACILLIN/TAZOB 3.375 GM 3.375 GM in DEXTROSE 5%-WATER - 50 ML IVPB SCH ×3 (02:39→18:49)
[2020-08-08] MEDS ORDERED: PIPERACILLIN/TAZOBACTAM 3.375 GM VIAL IVPB ONE (08:46)
[2020-08-08] MEDS ORDERED: DEXTROSE 5%-WATER - 50 ML IVPB ONE (08:47)
[2020-08-08] MEDS: ENOXAPARIN NA (PORCINE) 40 MG/0.4 ML DISP.SYRIN SQ SCH (09:02)
[2020-08-08] MEDS: MUPIROCIN 2% TOPICAL OINTMENT FOR DECOLONIZATION NS SCH ×2 (09:03→23:02)
[2020-08-08] MEDS: AMINO ACIDS/PROTEIN HYDROLYS 30 ML LIQUID.PKT PO SCH ×2 (09:29→18:00)
[2020-08-08] MEDS ORDERED: LEVOTHYROXINE NA 88 MCG TABLET (FP) PEG ONE (10:30)
[2020-08-08 12:35] LABS: HEMATOCRIT 24.3 % (32.4-45.2); HEMOGLOBIN 7.9 GM/dL (10.7-15.3); MCH 30.4 pg (25.7-33.7); MCHC 32.7 g/dl (32.0-36.0); MEAN CELL VOLUME 93.1 fl (80-96); MEAN PLT VOLUME 8.8 fl (7.5-11.1); PLATELET COUNT 192 K/MM3 (134-434); RBC 2.61 M/mm3 (3.60-5.2); RDW 18.8 % (11.6-15.6); WHITE BLOOD COUNT 9.5 K/mm3 (4.0-10.0)
[2020-08-08 12:55] LABS: POTASSIUM 4.1 mmol/L (3.5-5.1)
[2020-08-08 12:57] LABS: BLOOD UREA NITROGEN 48.6 mg/dL (7-18)
[2020-08-08 13:01] LABS: CREATININE 1.3 mg/dL (0.55-1.3)
[2020-08-08] MEDS ORDERED: ATENOLOL 50 MG TABLET (FP) PO SCH (18:45)
[2020-08-08] MEDS: amLODIPine BESYLATE 10 MG TABLET (FP) PO SCH (18:49)
[2020-08-08] MEDS: CHLORHEXIDINE GLUCONATE 4% CLEANSER FOR DECOLONIZATION TP SCH (23:02)
[2020-08-09] MEDS: PIPERACILLIN/TAZOB 3.375 GM 3.375 GM in DEXTROSE 5%-WATER - 50 ML IVPB SCH ×2 (03:00→09:11)
[2020-08-09] MEDS: LEVOTHYROXINE NA 88 MCG TABLET (FP) PEG SCH (07:51)
[2020-08-09] MEDS: AMINO ACIDS/PROTEIN HYDROLYS 30 ML LIQUID.PKT PO SCH ×2 (08:05→18:13)
[2020-08-09] MEDS ORDERED: DEXTROSE 5%-WATER - 50 ML IVPB ONE (09:08)
[2020-08-09] MEDS ORDERED: PIPERACILLIN/TAZOBACTAM 3.375 GM VIAL IVPB ONE (09:08)
[2020-08-09] MEDS: ENOXAPARIN NA (PORCINE) 40 MG/0.4 ML DISP.SYRIN SQ SCH (09:12)
[2020-08-09] MEDS: amLODIPine BESYLATE 10 MG TABLET (FP) PO SCH (09:13)
[2020-08-09] MEDS ORDERED: hydrALAZINE HCL 20 MG/ML VIAL IVPUSH ONE (10:15)
[2020-08-09 10:40] LABS: HEMATOCRIT 24.9 % (32.4-45.2); HEMOGLOBIN 8.4 GM/dL (10.7-15.3); MCH 31.2 pg (25.7-33.7); MCHC 33.5 g/dl (32.0-36.0); MEAN CELL VOLUME 93.1 fl (80-96); MEAN PLT VOLUME 8.7 fl (7.5-11.1); PLATELET COUNT 164 K/MM3 (134-434); RBC 2.68 M/mm3 (3.60-5.2); RDW 18.8 % (11.6-15.6); WHITE BLOOD COUNT 9.4 K/mm3 (4.0-10.0)
[2020-08-09 10:56] LABS: POTASSIUM 4.4 mmol/L (3.5-5.1)
[2020-08-09 10:58] LABS: CALCIUM 9.2 mg/dL (8.5-10.1)
[2020-08-09 10:59] LABS: BLOOD UREA NITROGEN 39.2 mg/dL (7-18); MAGNESIUM 2.3 mg/dL (1.8-2.4)
[2020-08-09 11:03] LABS: PHOSPHOROUS 3.4 mg/dL (2.5-4.9)
[2020-08-09] MEDS: CHLORHEXIDINE GLUCONATE 4% CLEANSER FOR DECOLONIZATION TP SCH (22:30)
[2020-08-10] MEDS ORDERED: PIPERACILLIN/TAZOBACTAM 3.375 GM VIAL IVPB ONE (01:11)
[2020-08-10] MEDS ORDERED: DEXTROSE 5%-WATER - 50 ML IVPB ONE (01:11)
[2020-08-10] MEDS: PIPERACILLIN/TAZOB 3.375 GM 3.375 GM in DEXTROSE 5%-WATER - 50 ML IVPB SCH ×3 (01:16→17:39)
[2020-08-10] MEDS: LEVOTHYROXINE NA 88 MCG TABLET (FP) PEG SCH (06:54)
[2020-08-10] MEDS: AMINO ACIDS/PROTEIN HYDROLYS 30 ML LIQUID.PKT PO SCH ×2 (09:01→17:39)
[2020-08-10 09:22] LABS: HEMATOCRIT 26.9 % (32.4-45.2); HEMOGLOBIN 8.9 GM/dL (10.7-15.3); MCH 30.9 pg (25.7-33.7); MCHC 33.1 g/dl (32.0-36.0); MEAN CELL VOLUME 93.5 fl (80-96); MEAN PLT VOLUME 8.6 fl (7.5-11.1); PLATELET COUNT 134 K/MM3 (134-434); RBC 2.88 M/mm3 (3.60-5.2); RDW 18.8 % (11.6-15.6)
[2020-08-10 09:43] LABS: POTASSIUM 4.3 mmol/L (3.5-5.1)
[2020-08-10 09:53] LABS: CALCIUM 9.3 mg/dL (8.5-10.1)
[2020-08-10 09:54] LABS: BLOOD UREA NITROGEN 35.1 mg/dL (7-18); MAGNESIUM 2.2 mg/dL (1.8-2.4)
[2020-08-10 09:57] LABS: CREATININE 0.8 mg/dL (0.55-1.3)
[2020-08-10 09:58] LABS: PHOSPHOROUS 3.2 mg/dL (2.5-4.9)
[2020-08-10] MEDS: amLODIPine BESYLATE 10 MG TABLET (FP) PO SCH (10:08)
[2020-08-10] MEDS: ENOXAPARIN NA (PORCINE) 40 MG/0.4 ML DISP.SYRIN SQ SCH (10:08)
[2020-08-10 15:52] VITALS: BMI 29.3
[2020-08-10] MEDS: CHLORHEXIDINE GLUCONATE 4% CLEANSER FOR DECOLONIZATION TP SCH (21:44)
[2020-08-11] MEDS ORDERED: PIPERACILLIN/TAZOBACTAM 3.375 GM VIAL IVPB ONE (01:41)
[2020-08-11] MEDS ORDERED: DEXTROSE 5%-WATER - 50 ML IVPB ONE (01:41)
[2020-08-11] MEDS: PIPERACILLIN/TAZOB 3.375 GM 3.375 GM in DEXTROSE 5%-WATER - 50 ML IVPB SCH ×2 (02:45→10:55)
[2020-08-11] MEDS: LEVOTHYROXINE NA 88 MCG TABLET (FP) PEG SCH (06:46)
[2020-08-11 08:16] LABS: HEMOGLOBIN 8.9 GM/dL (10.7-15.3); MCH 30.9 pg (25.7-33.7); MCHC 32.9 g/dl (32.0-36.0); MEAN CELL VOLUME 93.9 fl (80-96); MEAN PLT VOLUME 8.8 fl (7.5-11.1); PLATELET COUNT 127 K/MM3 (134-434); RBC 2.88 M/mm3 (3.60-5.2); RDW 18.5 % (11.6-15.6); WHITE BLOOD COUNT 7.4 K/mm3 (4.0-10.0)
[2020-08-11 08:28] LABS: POTASSIUM 4.4 mmol/L (3.5-5.1)
[2020-08-11 08:33] LABS: BLOOD UREA NITROGEN 36.2 mg/dL (7-18); CALCIUM 9.8 mg/dL (8.5-10.1); MAGNESIUM 2.3 mg/dL (1.8-2.4)
[2020-08-11 08:37] LABS: CREATININE 0.8 mg/dL (0.55-1.3); PHOSPHOROUS 3.6 mg/dL (2.5-4.9)
[2020-08-11] MEDS: amLODIPine BESYLATE 10 MG TABLET (FP) PO SCH (11:00)
[2020-08-11] MEDS: AMINO ACIDS/PROTEIN HYDROLYS 30 ML LIQUID.PKT PO SCH ×2 (11:00→17:46)
[2020-08-12] MEDS: CHLORHEXIDINE GLUCONATE 4% CLEANSER FOR DECOLONIZATION TP SCH (07:15)
[2020-08-12] MEDS: LEVOTHYROXINE NA 88 MCG TABLET (FP) PEG SCH (07:15)
[2020-08-12] MEDS: PIPERACILLIN/TAZOB 3.375 GM 3.375 GM in DEXTROSE 5%-WATER - 50 ML IVPB SCH (07:58)
[2020-08-12] MEDS ORDERED: AMINO ACIDS/PROTEIN HYDROLYS 30 ML LIQUID.PKT PO SCH (08:00)
[2020-08-12] MEDS ORDERED: amLODIPine BESYLATE 10 MG TABLET (FP) PO SCH (10:00)
[2020-08-12] MEDS ORDERED: ALBUTEROL SO4 2.5/IPRATROPIUM 0.5 INH SOL 3 ML VIAL.NEB. NEB PRN (10:06)
[2020-08-12] MEDS ORDERED: ACETAMINOPHEN 325 MG TABLET (FP) PO PRN (10:07)
[2020-08-12 10:13] LABS: HEMATOCRIT 27.9 % (32.4-45.2); HEMOGLOBIN 9.3 GM/dL (10.7-15.3); MCH 31.3 pg (25.7-33.7); MCHC 33.1 g/dl (32.0-36.0); MEAN CELL VOLUME 94.6 fl (80-96); MEAN PLT VOLUME 9.1 fl (7.5-11.1); PLATELET COUNT 135 K/MM3 (134-434); RBC 2.95 M/mm3 (3.60-5.2); RDW 19.2 % (11.6-15.6); WHITE BLOOD COUNT 6.3 K/mm3 (4.0-10.0)
[2020-08-12] MEDS ORDERED: ACETAMINOPHEN 650 MG/20.3 ML ORAL SOLUTION (CUPS) PO PRN (10:16)
[2020-08-12] MEDS: amLODIPine BESYLATE 10 MG TABLET (FP) GT SCH (10:26)
[2020-08-12 10:36] LABS: POTASSIUM 4.7 mmol/L (3.5-5.1)
[2020-08-12 10:41] LABS: BLOOD UREA NITROGEN 37.9 mg/dL (7-18); CALCIUM 9.2 mg/dL (8.5-10.1)
[2020-08-12 10:45] LABS: CREATININE 0.7 mg/dL (0.55-1.3); PHOSPHOROUS 3.7 mg/dL (2.5-4.9)
[2020-08-12] MEDS ORDERED: ACETAMINOPHEN 650 MG/20.3 ML ORAL SOLUTION (CUPS) GT PRN (14:16)
[2020-08-12] MEDS ORDERED: PT OWN MED DRAWER 7, Y5N ONE (15:02)
[2020-08-12] MEDS: LISINOPRIL 5 MG TABLET PO SCH (15:44)
[2020-08-12] MEDS: AMINO ACIDS/PROTEIN HYDROLYS 30 ML LIQUID.PKT PEG SCH (16:55)
[2020-08-12] MEDS ORDERED: CHLORHEXIDINE GLUCONATE 4% CLEANSER FOR DECOLONIZATION TP SCH (22:00)
[2020-08-12] MEDS: NYSTATIN POWDER 100,000 UNITS/GM - 15 GM TOPICAL POWDER TP SCH (22:06)
[2020-08-13] MEDS: VANCOMYCIN 250 MG/5 ML ORAL SOLUTION PEG SCH ×3 (00:22→11:44)
[2020-08-13] MEDS: LEVOTHYROXINE NA 88 MCG TABLET (FP) PEG SCH (06:33)
[2020-08-13] MEDS: AMINO ACIDS/PROTEIN HYDROLYS 30 ML LIQUID.PKT PEG SCH (09:54)
[2020-08-13] MEDS: LISINOPRIL 5 MG TABLET PO SCH (09:55)
[2020-08-13] MEDS: amLODIPine BESYLATE 10 MG TABLET (FP) GT SCH (09:55)
[2020-08-13] MEDS: NYSTATIN POWDER 100,000 UNITS/GM - 15 GM TOPICAL POWDER TP SCH (11:43)
[2020-08-13 15:09] VITALS: BP 158/62; PULSE 89; TEMP 98.6
== END 2020-08-13 16:24 | DRG 870 ==
LOC: JER 20:29 → JERBED 23:52 → JICU-6 08-04 03:07 → J5S 08-12 00:28
PROVIDERS: ADMIT Internal Medicine Pulmonary Disease; ATTEND Family Medicine
PROC: 5A1955Z Respiratory Ventilation, Greater than 96 Consecutive Hours (ICD-10-PCS; principal; 2020-08-03)
PROC: 5A12012 Performance of Cardiac Output, Single, Manual (ICD-10-PCS; 2020-08-04)
DX: A41.9 Sepsis, unspecified organism (principal); I46.9 Cardiac arrest, cause unspecified; J96.20 Acute and chronic respiratory failure, unspecified whether with hypoxia or hypercapnia; R65.21 Severe sepsis with septic shock; J18.9 Pneumonia, unspecified organism; I50.32 Chronic diastolic (congestive) heart failure; R64 Cachexia; N39.0 Urinary tract infection, site not specified; E87.0 Hyperosmolality and hypernatremia; I13.0 Hypertensive heart and chronic kidney disease with heart failure and stage 1 through stage 4 chronic kidney disease, or unspecified chronic kidney disease; Z99.11 Dependence on respirator [ventilator] status; Z93.0 Tracheostomy status; Z93.1 Gastrostomy status; E78.5 Hyperlipidemia, unspecified; F03.90 Unspecified dementia, unspecified severity, without behavioral disturbance, psychotic disturbance, mood disturbance, and anxiety; R68.0 Hypothermia, not associated with low environmental temperature; I95.9 Hypotension, unspecified; R00.1 Bradycardia, unspecified; E03.9 Hypothyroidism, unspecified; N18.9 Chronic kidney disease, unspecified; D64.9 Anemia, unspecified; B96.20 Unspecified Escherichia coli [E. coli] as the cause of diseases classified elsewhere; Z68.27 Body mass index [BMI] 27.0-27.9, adult
CPT/HCPCS: 36415; 70450-TC; 71045-TC-FY; 74176-TC; 76705-TC; 80048; 80053; 81003; 82140; 82533; 82550; 82565; 82962; 83605; 83735; 84100; 84300; 84439; 84443; 84484; 85025; 85027; 85610; 85730; 86769; 87040; 87086; 87324; 87449; 93005; 93010; 94002; 99285-25; C9803; U0003

== ENCOUNTER 2020-08-23 16:27 | Inpatient (IN) | payer OTHER ==
[~2020-08-23 16:27] MED LIST: LINEZOLID 600 MG PREMIX BAG 600 MG/300 ML BAG IVPB SCH
[2020-08-23] MEDS ORDERED: PIPERACILLIN/TAZOB 3.375 GM 3.375 GM in DEXTROSE 5%-WATER - 50 ML IVPB ONE (18:15)
[2020-08-23] MEDS ORDERED: LINEZOLID 600 MG PREMIX BAG 600 MG in PREMIX 300 IVPB ONE (18:30)
[2020-08-23] MEDS ORDERED: PIPERACILLIN/TAZOB 3.375 GM 3.375 GM/50 ML BAG IVPB ONE (19:23)
[2020-08-23 19:32] LABS: HEMATOCRIT 28.8 % (32.4-45.2); HEMOGLOBIN 9.5 GM/dL (10.7-15.3); LYMPH % 18.4 % (8-40); MCH 30.9 pg (25.7-33.7); MEAN CELL VOLUME 93.5 fl (80-96); MEAN PLT VOLUME 10.1 fl (7.5-11.1); MONO % 6.3 % (3.8-10.2); NEUT % 74.3 % (42.8-82.8); PLATELET COUNT 254 K/MM3 (134-434); RBC 3.08 M/mm3 (3.60-5.2); RDW 18.3 % (11.6-15.6); WHITE BLOOD COUNT 4.4 K/mm3 (4.0-10.0)
[2020-08-23 19:41] LABS: INR 0.98 (0.83-1.09); PROTHROMBIN TIME (PATIENT) 11.9 SEC (9.7-13.0)
[2020-08-23 20:24] LABS: CHLORIDE 103 mmol/L (98-107); POTASSIUM 4.3 mmol/L (3.5-5.1); SODIUM 139 mmol/L (136-145)
[2020-08-23 20:26] LABS: CALCIUM 9.9 mg/dL (8.5-10.1)
[2020-08-23 20:27] LABS: ALBUMIN 3.3 g/dl (3.4-5.0); ANION GAP 7 MMOL/L (8-16); CO2 29 mmol/L (21-32); GLUCOSE,RANDOM 82 mg/dL (74-106)
[2020-08-23 20:30] LABS: CREATININE 0.9 mg/dL (0.55-1.3); SGOT/AST 88 U/L (15-37); SGPT/ALT 123 U/L (13-61)
[2020-08-23 20:32] LABS: BILIRUBIN,TOTAL 0.3 mg/dL (0.2-1); TOT PROT 7.4 g/dl (6.4-8.2)
[2020-08-23 20:33] LABS: ALK PHOS 196 U/L (45-117)
[2020-08-23 20:53] LABS: BLOOD UREA NITROGEN 63.7 mg/dL (7-18)
[2020-08-23 21:41] LABS: EPI CELLS 9 /uL (0-25.1); HYALINE CASTS 4 /uL (0-3.1); PH,URINE 8.5 (5.0-8.0); URINE APPEARANCE CLEAR; URINE BACTERIA 237 /uL (0-1359); URINE BILIRUBIN NEGATIVE (NEGATIVE); URINE COLOR YELLOW; URINE GLUCOSE (UA) NEGATIVE (NEGATIVE); URINE KETONE NEGATIVE (NEGATIVE); URINE LEUK ESTERASE 3+ (NEGATIVE); URINE NITRITE NEGATIVE (NEGATIVE); URINE PROTEIN NEGATIVE (NEGATIVE); URINE RBC 9 /uL (0-23.9); URINE UROBILINOGEN 0.2 mg/dL (0.2-1.0); URINE WBC 754 /uL (0-25.8)
[2020-08-23] MEDS ORDERED: DEXTROSE 5%-0.45% SALINE 1,000 ML IV SCH (23:15)
[2020-08-24] MEDS ORDERED: PIPERACILLIN/TAZOB 3.375 GM 3.375 GM/50 ML BAG IVPB ONE ×3 (01:29→18:05)
[2020-08-24] MEDS: PIPERACILLIN/TAZOB 3.375 GM 3.375 GM in DEXTROSE 5%-WATER - 50 ML IVPB SCH ×3 (01:38→18:10)
[2020-08-24 07:58] LABS: BASO % 0.9 % (0-2.0); EOS % 0.1 % (0-4.5); HEMATOCRIT 28.3 % (32.4-45.2); HEMOGLOBIN 9.5 GM/dL (10.7-15.3); LYMPH % 14.1 % (8-40); MCH 31.2 pg (25.7-33.7); MCHC 33.5 g/dl (32.0-36.0); MEAN CELL VOLUME 93.1 fl (80-96); MEAN PLT VOLUME 10.1 fl (7.5-11.1); MONO % 11.5 % (3.8-10.2); NEUT % 73.4 % (42.8-82.8); PLATELET COUNT 278 K/MM3 (134-434); RBC 3.04 M/mm3 (3.60-5.2); RDW 18.8 % (11.6-15.6); WHITE BLOOD COUNT 6.1 K/mm3 (4.0-10.0)
[2020-08-24 08:13] LABS: POTASSIUM 5.3 mmol/L (3.5-5.1)
[2020-08-24 08:16] LABS: ALBUMIN 3.2 g/dl (3.4-5.0); BLOOD UREA NITROGEN 71.7 mg/dL (7-18); CALCIUM 9.4 mg/dL (8.5-10.1)
[2020-08-24 08:19] LABS: CREATININE 1.5 mg/dL (0.55-1.3)
[2020-08-24 08:21] LABS: BILIRUBIN,TOTAL 0.4 mg/dL (0.2-1)
[2020-08-24 08:24] LABS: TOT PROT 7.3 g/dl (6.4-8.2)
[2020-08-24] MEDS: LINEZOLID 600 MG PREMIX BAG 600 MG/300 ML BAG IVPB SCH ×2 (10:00→20:48)
[2020-08-24] MEDS: LEVOTHYROXINE SODIUM 100 MCG VIAL IVPUSH SCH (10:40)
[2020-08-24] MEDS: ENOXAPARIN NA (PORCINE) 40 MG/0.4 ML DISP.SYRIN SQ SCH (10:40)
[2020-08-24] MEDS: DEXTROSE 5%-0.45% SALINE 1,000 ML IV SCH (12:05)
[2020-08-24] MEDS: LINEZOLID 600 MG PREMIX BAG 600 MG in PREMIX 300 IVPB SCH (22:56)
[2020-08-25] MEDS ORDERED: PIPERACILLIN/TAZOB 3.375 GM 3.375 GM/50 ML BAG IVPB ONE ×2 (02:30→09:41)
[2020-08-25] MEDS: PIPERACILLIN/TAZOB 3.375 GM 3.375 GM in DEXTROSE 5%-WATER - 50 ML IVPB SCH ×3 (02:32→17:00)
[2020-08-25 06:59] LABS: BASO % 1.2 % (0-2.0); HEMATOCRIT 25.8 % (32.4-45.2); HEMOGLOBIN 8.8 GM/dL (10.7-15.3); LYMPH % 25.3 % (8-40); MCH 31.6 pg (25.7-33.7); MEAN CELL VOLUME 92.9 fl (80-96); MEAN PLT VOLUME 9.8 fl (7.5-11.1); NEUT % 62.5 % (42.8-82.8); PLATELET COUNT 232 K/MM3 (134-434); RBC 2.78 M/mm3 (3.60-5.2); RDW 18.4 % (11.6-15.6); WHITE BLOOD COUNT 3.2 K/mm3 (4.0-10.0)
[2020-08-25 07:32] LABS: ALBUMIN 2.8 g/dl (3.4-5.0); BLOOD UREA NITROGEN 65.9 mg/dL (7-18); CALCIUM 9.1 mg/dL (8.5-10.1)
[2020-08-25 07:35] LABS: CREATININE 1.6 mg/dL (0.55-1.3)
[2020-08-25 07:37] LABS: TOT PROT 6.7 g/dl (6.4-8.2)
[2020-08-25] MEDS: LEVOTHYROXINE SODIUM 100 MCG VIAL IVPUSH SCH (09:10)
[2020-08-25] MEDS: LINEZOLID 600 MG PREMIX BAG 600 MG in PREMIX 300 IVPB SCH (09:30)
[2020-08-25] MEDS ORDERED: ENOXAPARIN NA (PORCINE) 40 MG/0.4 ML DISP.SYRIN SQ ONE (09:41)
[2020-08-25] MEDS: ENOXAPARIN NA (PORCINE) 40 MG/0.4 ML DISP.SYRIN SQ SCH (09:46)
[2020-08-25] MEDS: DEXTROSE 5%-0.45% SALINE 1,000 ML IV SCH ×2 (13:24→22:16)
[2020-08-25] MEDS ORDERED: ALBUTEROL SO4 2.5/IPRATROPIUM 0.5 INH SOL 3 ML VIAL.NEB. NEB PRN (13:45)
[2020-08-25] MEDS ORDERED: ACETAMINOPHEN 160 MG/5 ML *Children Solution PO PRN (13:46)
[2020-08-25] MEDS ORDERED: ACETAMINOPHEN 650 MG/20.3 ML ORAL SOLUTION (CUPS) PO PRN (13:51)
[2020-08-25] MEDS ORDERED: DEXTROSE 5%-WATER - 50 ML IVPB ONE (16:54)
[2020-08-25] MEDS ORDERED: PIPERACILLIN/TAZOBACTAM 3.375 GM VIAL IVPB ONE (16:54)
[2020-08-25] MEDS: AMINO ACIDS/PROTEIN HYDROLYS 30 ML LIQUID.PKT PEG SCH (17:01)
[2020-08-25 19:19] LABS: EPI CELLS 10 /uL (0-25.1); HYALINE CASTS 2 /uL (0-3.1); PH,URINE 7.5 (5.0-8.0); URINE APPEARANCE CLOUDY; URINE BACTERIA 403 /uL (0-1359); URINE BILIRUBIN NEGATIVE (NEGATIVE); URINE COLOR YELLOW; URINE GLUCOSE (UA) NEGATIVE (NEGATIVE); URINE KETONE NEGATIVE (NEGATIVE); URINE LEUK ESTERASE 3+ (NEGATIVE); URINE NITRITE NEGATIVE (NEGATIVE); URINE PROTEIN TRACE (NEGATIVE); URINE RBC 11 /uL (0-23.9); URINE UROBILINOGEN 0.2 mg/dL (0.2-1.0); URINE WBC 2133 /uL (0-25.8)
[2020-08-25] MEDS: FERROUS SO4 300 MG/5 ML ORAL SOLN UNIT DOSE CUPS GT SCH (22:15)
[2020-08-26] MEDS ORDERED: PIPERACILLIN/TAZOBACTAM 3.375 GM VIAL IVPB ONE ×3 (01:06→17:16)
[2020-08-26] MEDS ORDERED: DEXTROSE 5%-WATER - 50 ML IVPB ONE ×3 (01:06→17:16)
[2020-08-26] MEDS: PIPERACILLIN/TAZOB 3.375 GM 3.375 GM in DEXTROSE 5%-WATER - 50 ML IVPB SCH ×4 (01:34→17:22)
[2020-08-26 08:48] LABS: BASO % 0.9 % (0-2.0); HEMATOCRIT 23.7 % (32.4-45.2); HEMOGLOBIN 8.1 GM/dL (10.7-15.3); LYMPH % 23.7 % (8-40); MCH 31.7 pg (25.7-33.7); MCHC 34.1 g/dl (32.0-36.0); MEAN CELL VOLUME 92.9 fl (80-96); MEAN PLT VOLUME 9.5 fl (7.5-11.1); MONO % 12.1 % (3.8-10.2); NEUT % 63.3 % (42.8-82.8); PLATELET COUNT 200 K/MM3 (134-434); RBC 2.55 M/mm3 (3.60-5.2); RDW 18.6 % (11.6-15.6); WHITE BLOOD COUNT 3.6 K/mm3 (4.0-10.0)
[2020-08-26 09:11] LABS: POTASSIUM 3.6 mmol/L (3.5-5.1)
[2020-08-26 09:15] LABS: ALBUMIN 2.4 g/dl (3.4-5.0); CALCIUM 8.9 mg/dL (8.5-10.1)
[2020-08-26 09:19] LABS: CREATININE 1.4 mg/dL (0.55-1.3)
[2020-08-26 09:20] LABS: BILIRUBIN,TOTAL 0.5 mg/dL (0.2-1); TOT PROT 5.9 g/dl (6.4-8.2)
[2020-08-26] MEDS ORDERED: PT OWN MED DRAWER 7, Y5N ONE ×2 (09:58→22:12)
[2020-08-26] MEDS: FOLIC ACID 1 MG TABLET (FP) GT SCH (10:15)
[2020-08-26] MEDS: AMINO ACIDS/PROTEIN HYDROLYS 30 ML LIQUID.PKT PEG SCH (10:15)
[2020-08-26] MEDS: amLODIPine BESYLATE 10 MG TABLET (FP) GT SCH (10:15)
[2020-08-26] MEDS: ATORVASTATIN CA 20 MG TABLET (FP) GT SCH (10:15)
[2020-08-26] MEDS: FERROUS SO4 300 MG/5 ML ORAL SOLN UNIT DOSE CUPS GT SCH (10:15)
[2020-08-26] MEDS: ENOXAPARIN NA (PORCINE) 40 MG/0.4 ML DISP.SYRIN SQ SCH (10:16)
[2020-08-26] MEDS: LEVOTHYROXINE SODIUM 100 MCG VIAL IVPUSH SCH (10:16)
[2020-08-26] MEDS: ATENOLOL 50 MG TABLET (FP) GT SCH (10:17)
[2020-08-26] MEDS: DEXTROSE 5%-0.45% SALINE 1,000 ML IV SCH ×3 (10:17→22:33)
[2020-08-26 11:01] VITALS: BMI 29.0
[2020-08-26] MEDS: LINEZOLID 600 MG PREMIX BAG 600 MG in PREMIX 300 IVPB SCH (12:17)
[2020-08-27] MEDS: FERROUS SO4 300 MG/5 ML ORAL SOLN UNIT DOSE CUPS GT SCH ×2 (00:06→09:31)
[2020-08-27] MEDS ORDERED: PIPERACILLIN/TAZOBACTAM 3.375 GM VIAL IVPB ONE ×3 (01:36→18:06)
[2020-08-27] MEDS ORDERED: DEXTROSE 5%-WATER - 50 ML IVPB ONE ×3 (01:36→18:07)
[2020-08-27] MEDS: PIPERACILLIN/TAZOB 3.375 GM 3.375 GM in DEXTROSE 5%-WATER - 50 ML IVPB SCH ×3 (01:45→18:18)
[2020-08-27] MEDS ORDERED: AMINO ACIDS/PROTEIN HYDROLYS 30 ML LIQUID.PKT PEG SCH (08:00)
[2020-08-27] MEDS ORDERED: PT OWN MED DRAWER 7, Y5N ONE (09:26)
[2020-08-27] MEDS: FOLIC ACID 1 MG TABLET (FP) GT SCH (09:31)
[2020-08-27] MEDS: amLODIPine BESYLATE 10 MG TABLET (FP) GT SCH (09:31)
[2020-08-27] MEDS: ENOXAPARIN NA (PORCINE) 40 MG/0.4 ML DISP.SYRIN SQ SCH (09:31)
[2020-08-27] MEDS: ATORVASTATIN CA 20 MG TABLET (FP) GT SCH (09:32)
[2020-08-27] MEDS: LEVOTHYROXINE SODIUM 100 MCG VIAL IVPUSH SCH (09:32)
[2020-08-27] MEDS: ATENOLOL 50 MG TABLET (FP) GT SCH (09:32)
[2020-08-27] MEDS ORDERED: FLU VACCINE (FLULAVAL) PF 60 MCG/0.5 ML SYRINGE 2020-2021 IM ONE (10:00)
[2020-08-27 10:09] LABS: BASO % 0.8 % (0-2.0); HEMATOCRIT 25.5 % (32.4-45.2); HEMOGLOBIN 8.4 GM/dL (10.7-15.3); LYMPH % 21.7 % (8-40); MCH 30.9 pg (25.7-33.7); MCHC 32.9 g/dl (32.0-36.0); MEAN PLT VOLUME 9.7 fl (7.5-11.1); MONO % 11.1 % (3.8-10.2); NEUT % 66.4 % (42.8-82.8); PLATELET COUNT 194 K/MM3 (134-434); RBC 2.71 M/mm3 (3.60-5.2); RDW 18.4 % (11.6-15.6); WHITE BLOOD COUNT 4.8 K/mm3 (4.0-10.0)
[2020-08-27 10:28] LABS: POTASSIUM 3.7 mmol/L (3.5-5.1)
[2020-08-27 10:36] LABS: ALBUMIN 2.3 g/dl (3.4-5.0)
[2020-08-27 10:38] LABS: CALCIUM 8.7 mg/dL (8.5-10.1)
[2020-08-27 10:39] LABS: BLOOD UREA NITROGEN 46.4 mg/dL (7-18)
[2020-08-27 10:42] LABS: BILIRUBIN,TOTAL 0.2 mg/dL (0.2-1); CREATININE 1.1 mg/dL (0.55-1.3); TOT PROT 5.7 g/dl (6.4-8.2)
[2020-08-27 17:32] VITALS: BP 133/73; PULSE 66; TEMP 97.3
[2020-08-27] MEDS: DEXTROSE 5%-0.45% SALINE 1,000 ML IV SCH (19:27)
== END 2020-08-27 20:11 | DRG 870 ==
LOC: JER 16:27 → JERBED 21:22 → J5S 08-25 15:11
PROVIDERS: ADMIT Internal Medicine; ATTEND Family Medicine
PROC: 5A1955Z Respiratory Ventilation, Greater than 96 Consecutive Hours (ICD-10-PCS; principal; 2020-08-23)
PROC: 0D20XUZ Change Feeding Device in Upper Intestinal Tract, External Approach (ICD-10-PCS; 2020-08-25)
DX: A41.9 Sepsis, unspecified organism (principal); N30.00 Acute cystitis without hematuria; N17.9 Acute kidney failure, unspecified; J96.10 Chronic respiratory failure, unspecified whether with hypoxia or hypercapnia; I50.32 Chronic diastolic (congestive) heart failure; Z99.11 Dependence on respirator [ventilator] status; K94.23 Gastrostomy malfunction; T85.528A Displacement of other gastrointestinal prosthetic devices, implants and grafts, initial encounter; R68.0 Hypothermia, not associated with low environmental temperature; F03.90 Unspecified dementia, unspecified severity, without behavioral disturbance, psychotic disturbance, mood disturbance, and anxiety; E03.9 Hypothyroidism, unspecified; F17.210 Nicotine dependence, cigarettes, uncomplicated; Z93.0 Tracheostomy status
CPT/HCPCS: 36415; 49450; 71045-TC-FY; 76775-TC; 80053; 81003; 82436; 82565; 83605; 84133; 84300; 84484; 85025; 85610; 85730; 87040; 87086; 93005; 93010; 94002; 99285-25; C9803; U0003

== ENCOUNTER 2020-11-25 07:11 | Inpatient (IN) | payer OTHER ==
[2020-11-25 08:42] LABS: VENOUS BASE EXCESS 2.8 mmol/L (-2-2); VENOUS O2 SATURATION 67.2 % (70-80); VENOUS PCO2 57.6 mmHg (38-52); VENOUS PH 7.331 (7.310-7.410)
[2020-11-25 08:49] LABS: BASO % 0.3 % (0-2.0); HEMOGLOBIN 9.9 GM/dL (10.7-15.3); LYMPH % 1.7 % (8-40); MCH 30.2 pg (25.7-33.7); MCHC 33.1 g/dl (32.0-36.0); MEAN PLT VOLUME 8.8 fl (7.5-11.1); MONO % 1.7 % (3.8-10.2); NEUT % 96.3 % (42.8-82.8); PLATELET COUNT 457 K/MM3 (134-434); RDW 14.8 % (11.6-15.6); WHITE BLOOD COUNT 21.3 K/mm3 (4.0-10.0)
[2020-11-25] MEDS ORDERED: SODIUM CHLORIDE FOR INHALATION 3 ML VIAL.NEB IH ONE (08:49)
[2020-11-25 08:53] LABS: EPI CELLS >36 /uL (0-25.1); HYALINE CASTS 12 /uL (0-3.1); URINE APPEARANCE TURBID; URINE BACTERIA 1012 /uL (0-1359); URINE BILIRUBIN NEGATIVE (NEGATIVE); URINE COLOR YELLOW; URINE GLUCOSE (UA) NEGATIVE (NEGATIVE); URINE KETONE NEGATIVE (NEGATIVE); URINE LEUK ESTERASE 3+ (NEGATIVE); URINE NITRITE NEGATIVE (NEGATIVE); URINE PROTEIN 1+ (NEGATIVE); URINE UROBILINOGEN 0.2 mg/dL (0.2-1.0); URINE WBC 4961 /uL (0-25.8)
[2020-11-25 08:56] LABS: INR 1.04 (0.83-1.09); PROTHROMBIN TIME (PATIENT) 12.8 SEC (9.7-13.0)
[2020-11-25 09:17] LABS: CHLORIDE 94 mmol/L (98-107); SODIUM 134 mmol/L (136-145)
[2020-11-25 09:20] LABS: ALBUMIN 2.6 g/dl (3.4-5.0); ANION GAP 10 MMOL/L (8-16); BLOOD UREA NITROGEN 41.2 mg/dL (7-18); CALCIUM 9.4 mg/dL (8.5-10.1); CO2 29 mmol/L (21-32); GLUCOSE,RANDOM 242 mg/dL (74-106)
[2020-11-25 09:24] LABS: BILIRUBIN,TOTAL 0.4 mg/dL (0.2-1); SGOT/AST 29 U/L (15-37); SGPT/ALT 20 U/L (13-61)
[2020-11-25 09:26] LABS: ALK PHOS 111 U/L (45-117); LACTIC ACID 4.1 mmol/L (0.4-2.0)
[2020-11-25] MEDS ORDERED: LACTATED RINGERS SOLUTION 1000 ML INFUS.BAG IV ONE (09:30)
[2020-11-25] MEDS ORDERED: PIPERACILLIN/TAZOB 3.375 GM 3.375 GM in DEXTROSE 5%-WATER - 50 ML IVPB ONE (09:31)
[2020-11-25] MEDS ORDERED: AZTREONAM 2 GM in DEXTROSE 5%-WATER 100 ML IVPB ONE (09:38)
[2020-11-25] MEDS ORDERED: PIPERACILLIN/TAZOB 3.375 GM 3.375 GM/50 ML BAG IVPB ONE ×2 (09:46→17:52)
[2020-11-25 09:53] LABS: URINE RBC 59.3 /uL (0-23.9)
[2020-11-25 10:53] LABS: ANISOCYTOSIS 0; MACROCYTOSIS 0; PLATELET ESTIMATE INCREASED
[2020-11-25] MEDS ORDERED: ACETAMINOPHEN 1000 MG/100 ML VIAL (NON FORMULARY) IVPB ONE (15:53)
[2020-11-25] MEDS ORDERED: ACETAMINOPHEN INJECTION 100 ML IVPB ONE (15:57)
[2020-11-25] MEDS ORDERED: ACETAMINOPHEN 325 MG TABLET (FP) PO PRN (16:15)
[2020-11-25] MEDS ORDERED: D5-1/2NS+20 MEQ KCL - 1,000 ML IV SCH (16:30)
[2020-11-25] MEDS ORDERED: SODIUM CHLORIDE 0.45% 1,000 ML IV SCH (16:30)
[2020-11-25] MEDS ORDERED: VANCOMYCIN 1 GRAM (PRE-DOCKED) 1,000 MG/250 ML BAG IVPB ONE ×2 (16:50→17:42)
[2020-11-25] MEDS: PIPERACILLIN/TAZOB 3.375 GM 3.375 GM in DEXTROSE 5%-WATER - 50 ML IVPB SCH (18:00)
[2020-11-25] MEDS: AMINO ACIDS/PROTEIN HYDROLYS 30 ML LIQUID.PKT PEG SCH (18:55)
[2020-11-25] MEDS ORDERED: SODIUM CHLORIDE 1,000 ML IV SCH (21:45)
[2020-11-25 22:29] LABS: CALCIUM 8.7 mg/dL (8.5-10.1)
[2020-11-25 22:30] LABS: BLOOD UREA NITROGEN 46.2 mg/dL (7-18)
[2020-11-25 22:33] LABS: CREATININE 1.1 mg/dL (0.55-1.3)
[2020-11-25 22:35] LABS: BILIRUBIN,TOTAL 0.6 mg/dL (0.2-1); TOT PROT 5.8 g/dl (6.4-8.2)
[2020-11-25 22:41] LABS: ALBUMIN 2.1 g/dl (3.4-5.0)
[2020-11-25] MEDS ORDERED: SODIUM CHLORIDE 500 ML IV STA (23:01)
[2020-11-26] MEDS ORDERED: PIPERACILLIN/TAZOBACTAM 3.375 GM VIAL IVPB ONE ×3 (01:32→16:50)
[2020-11-26] MEDS ORDERED: DEXTROSE 5%-WATER - 50 ML IVPB ONE ×3 (01:32→16:50)
[2020-11-26] MEDS: PIPERACILLIN/TAZOB 3.375 GM 3.375 GM in DEXTROSE 5%-WATER - 50 ML IVPB SCH ×3 (02:07→17:07)
[2020-11-26] MEDS ORDERED: VANCOMYCIN/WATER 1,250 MG/250 ML BAG IVPB SCH ×2 (06:39→07:00)
[2020-11-26] MEDS ORDERED: PT OWN MED DRAWER 7, Y5N ONE ×2 (09:22→10:58)
[2020-11-26] MEDS: SODIUM CHLORIDE 1,000 ML IV SCH (09:28)
[2020-11-26] MEDS: AMINO ACIDS/PROTEIN HYDROLYS 30 ML LIQUID.PKT PEG SCH ×2 (09:35→17:07)
[2020-11-26] MEDS: ENOXAPARIN NA (PORCINE) 40 MG/0.4 ML DISP.SYRIN SQ SCH (09:35)
[2020-11-26] MEDS: LEVOTHYROXINE NA 100 MCG TABLET (FP) GT SCH (09:35)
[2020-11-26] MEDS: amLODIPine BESYLATE 10 MG TABLET (FP) GT SCH (09:35)
[2020-11-26] MEDS ORDERED: VANCOMYCIN/WATER BAGS 1,250 MG/250 ML BAG IVPB ONE (09:44)
[2020-11-26] MEDS ORDERED: ATENOLOL 25 MG TABLET (FP) GT SCH (10:00)
[2020-11-26] MEDS ORDERED: ATENOLOL 50 MG TABLET (FP) GT SCH (10:00)
[2020-11-26] MEDS ORDERED: FERROUS SO4 300 MG/5 ML ORAL SOLN UNIT DOSE CUPS GT SCH (10:15)
[2020-11-26] MEDS: ACETAMINOPHEN 650 MG/20.3 ML ORAL SOLUTION (CUPS) GT PRN ×2 (11:00→17:11)
[2020-11-26 11:53] LABS: BASO % 0.1 % (0-2.0); HEMATOCRIT 23.6 % (32.4-45.2); HEMOGLOBIN 7.8 GM/dL (10.7-15.3); LYMPH % 1.6 % (8-40); MCHC 32.9 g/dl (32.0-36.0); MEAN CELL VOLUME 91.1 fl (80-96); MEAN PLT VOLUME 8.5 fl (7.5-11.1); MONO % 0.9 % (3.8-10.2); NEUT % 97.4 % (42.8-82.8); PLATELET COUNT 307 K/MM3 (134-434); RBC 2.59 M/mm3 (3.60-5.2)
[2020-11-26 11:59] LABS: WHITE BLOOD COUNT 39.9 K/mm3 (4.0-10.0)
[2020-11-26 12:19] LABS: ALBUMIN 2.1 g/dl (3.4-5.0); CALCIUM 8.5 mg/dL (8.5-10.1)
[2020-11-26 12:20] LABS: BLOOD UREA NITROGEN 48.2 mg/dL (7-18)
[2020-11-26 12:23] LABS: PHOSPHOROUS 3.3 mg/dL (2.5-4.9)
[2020-11-26 12:25] LABS: BILIRUBIN,TOTAL 0.6 mg/dL (0.2-1); TOT PROT 5.7 g/dl (6.4-8.2)
[2020-11-26 12:29] LABS: ANISOCYTOSIS 1+; MACROCYTOSIS 0; PLATELET ESTIMATE NORMAL
[2020-11-26 12:54] LABS: CREATININE 1.2 mg/dL (0.55-1.3)
[2020-11-26] MEDS: NYSTATIN POWDER 100,000 UNITS/GM - 15 GM TOPICAL POWDER TP SCH ×2 (16:03→22:34)
[2020-11-26] MEDS: VANCOMYCIN 250 MG/5 ML ORAL SOLUTION GT SCH ×2 (17:08→23:43)
[2020-11-26] MEDS: ATORVASTATIN CA 20 MG TABLET (FP) GT SCH (22:34)
[2020-11-26] MEDS: FERROUS SO4 300 MG/5 ML ORAL SOLN UNIT DOSE CUPS GT SCH (22:34)
[2020-11-26] MEDS: VANCOMYCIN 1 GRAM (PRE-DOCKED) 1,000 MG/250 ML BAG IVPB SCH (22:37)
[2020-11-27] MEDS ORDERED: PIPERACILLIN/TAZOBACTAM 3.375 GM VIAL IVPB ONE ×3 (01:57→16:53)
[2020-11-27] MEDS ORDERED: DEXTROSE 5%-WATER - 50 ML IVPB ONE ×3 (01:58→16:53)
[2020-11-27] MEDS: PIPERACILLIN/TAZOB 3.375 GM 3.375 GM in DEXTROSE 5%-WATER - 50 ML IVPB SCH ×3 (02:33→17:05)
[2020-11-27] MEDS: VANCOMYCIN 250 MG/5 ML ORAL SOLUTION GT SCH ×4 (05:30→23:15)
[2020-11-27] MEDS: ACETAMINOPHEN 650 MG/20.3 ML ORAL SOLUTION (CUPS) GT PRN ×2 (05:30→17:05)
[2020-11-27] MEDS ORDERED: PT OWN MED DRAWER 7, Y5N ONE (10:09)
[2020-11-27] MEDS: AMINO ACIDS/PROTEIN HYDROLYS 30 ML LIQUID.PKT PEG SCH ×2 (10:12→17:05)
[2020-11-27] MEDS: ENOXAPARIN NA (PORCINE) 40 MG/0.4 ML DISP.SYRIN SQ SCH (10:12)
[2020-11-27] MEDS: LEVOTHYROXINE NA 100 MCG TABLET (FP) GT SCH (10:12)
[2020-11-27] MEDS: NYSTATIN POWDER 100,000 UNITS/GM - 15 GM TOPICAL POWDER TP SCH ×2 (10:12→22:18)
[2020-11-27] MEDS: amLODIPine BESYLATE 10 MG TABLET (FP) GT SCH (10:12)
[2020-11-27] MEDS: ATENOLOL 50 MG TABLET (FP) GT SCH (10:12)
[2020-11-27] MEDS: SODIUM CHLORIDE 1,000 ML IV SCH (10:12)
[2020-11-27] MEDS: FERROUS SO4 300 MG/5 ML ORAL SOLN UNIT DOSE CUPS GT SCH ×2 (10:12→22:18)
[2020-11-27 11:46] LABS: BASO % 0.2 % (0-2.0); EOS % 0.1 % (0-4.5); HEMATOCRIT 22.1 % (32.4-45.2); HEMOGLOBIN 7.2 GM/dL (10.7-15.3); LYMPH % 1.8 % (8-40); MCH 29.9 pg (25.7-33.7); MCHC 32.3 g/dl (32.0-36.0); MEAN CELL VOLUME 92.6 fl (80-96); MEAN PLT VOLUME 9.2 fl (7.5-11.1); MONO % 1.1 % (3.8-10.2); NEUT % 96.8 % (42.8-82.8); PLATELET COUNT 279 K/MM3 (134-434); RBC 2.39 M/mm3 (3.60-5.2); RDW 14.9 % (11.6-15.6)
[2020-11-27 11:47] LABS: CHLORIDE 101 mmol/L (98-107); SODIUM 137 mmol/L (136-145)
[2020-11-27 11:49] LABS: ALBUMIN 1.9 g/dl (3.4-5.0); CALCIUM 8.7 mg/dL (8.5-10.1)
[2020-11-27 11:50] LABS: BLOOD UREA NITROGEN 54.1 mg/dL (7-18); CO2 23 mmol/L (21-32); GLUCOSE,RANDOM 130 mg/dL (74-106)
[2020-11-27 11:52] LABS: SGPT/ALT 17 U/L (13-61); WHITE BLOOD COUNT 32.3 K/mm3 (4.0-10.0)
[2020-11-27 11:53] LABS: CREATININE 1.2 mg/dL (0.55-1.3); SGOT/AST 22 U/L (15-37)
[2020-11-27 11:55] LABS: ALK PHOS 121 U/L (45-117); BILIRUBIN,TOTAL 0.4 mg/dL (0.2-1); TOT PROT 5.6 g/dl (6.4-8.2)
[2020-11-27 11:58] LABS: ANION GAP 12 MMOL/L (8-16)
[2020-11-27] MEDS: VANCOMYCIN 1 GRAM (PRE-DOCKED) 1,000 MG/250 ML BAG IVPB SCH (11:59)
[2020-11-27 12:15] LABS: ANISOCYTOSIS 1+; MACROCYTOSIS 0; PLATELET ESTIMATE NORMAL
[2020-11-27] MEDS ORDERED: POTASSIUM CHLORIDE ORAL LIQUID 20 MEQ/15 ML PO ONE (12:29)
[2020-11-27] MEDS: KCL 10 MEQ IVPB 10 MEQ/100 ML INFUS.BAG IVPB SCH ×3 (12:46→16:20)
[2020-11-27 14:24] LABS: IRON SERUM 14 ug/dL (50-175); TOTAL IRON BINDING CAPACITY 103 ug/dL (250-450)
[2020-11-27] MEDS: ATORVASTATIN CA 20 MG TABLET (FP) GT SCH (22:18)
[2020-11-28] MEDS ORDERED: PIPERACILLIN/TAZOBACTAM 3.375 GM VIAL IVPB ONE ×2 (01:14→10:21)
[2020-11-28] MEDS ORDERED: DEXTROSE 5%-WATER - 50 ML IVPB ONE ×3 (01:14→14:31)
[2020-11-28] MEDS: PIPERACILLIN/TAZOB 3.375 GM 3.375 GM in DEXTROSE 5%-WATER - 50 ML IVPB SCH ×2 (02:24→10:40)
[2020-11-28] MEDS: VANCOMYCIN 250 MG/5 ML ORAL SOLUTION GT SCH ×4 (05:51→23:27)
[2020-11-28 09:00] LABS: BASO % 0.2 % (0-2.0); LYMPH % 2.6 % (8-40); MCH 30.7 pg (25.7-33.7); MCHC 33.3 g/dl (32.0-36.0); MEAN CELL VOLUME 92.2 fl (80-96); MEAN PLT VOLUME 8.8 fl (7.5-11.1); MONO % 2.4 % (3.8-10.2); NEUT % 94.8 % (42.8-82.8); PLATELET COUNT 268 K/MM3 (134-434); RBC 2.28 M/mm3 (3.60-5.2); RDW 15.1 % (11.6-15.6)
[2020-11-28 09:30] LABS: ALBUMIN 1.7 g/dl (3.4-5.0); BLOOD UREA NITROGEN 47.6 mg/dL (7-18); MAGNESIUM 2.1 mg/dL (1.8-2.4)
[2020-11-28 09:33] LABS: CALCIUM 8.6 mg/dL (8.5-10.1)
[2020-11-28 09:35] LABS: BILIRUBIN,TOTAL 0.5 mg/dL (0.2-1); TOT PROT 5.4 g/dl (6.4-8.2)
[2020-11-28] MEDS ORDERED: PT OWN MED DRAWER 7, Y5N ONE (10:21)
[2020-11-28] MEDS: ATENOLOL 50 MG TABLET (FP) GT SCH (10:40)
[2020-11-28] MEDS: FERROUS SO4 300 MG/5 ML ORAL SOLN UNIT DOSE CUPS GT SCH ×2 (10:40→21:27)
[2020-11-28] MEDS: NYSTATIN POWDER 100,000 UNITS/GM - 15 GM TOPICAL POWDER TP SCH ×2 (10:40→21:27)
[2020-11-28] MEDS: LEVOTHYROXINE NA 100 MCG TABLET (FP) GT SCH (10:40)
[2020-11-28] MEDS: amLODIPine BESYLATE 10 MG TABLET (FP) GT SCH (10:40)
[2020-11-28] MEDS: ENOXAPARIN NA (PORCINE) 40 MG/0.4 ML DISP.SYRIN SQ SCH (10:40)
[2020-11-28] MEDS: AMINO ACIDS/PROTEIN HYDROLYS 30 ML LIQUID.PKT PEG SCH ×2 (10:40→18:02)
[2020-11-28] MEDS: ACETAMINOPHEN 650 MG/20.3 ML ORAL SOLUTION (CUPS) GT PRN (10:41)
[2020-11-28 11:53] LABS: ANISOCYTOSIS 1+; MACROCYTOSIS 0; PLATELET ESTIMATE NORMAL; TOXIC GRANULATION 2+
[2020-11-28] MEDS: guaiFENesin/D-M SUGAR-FREE/ACLHOL-FREE 118 ML BOTTLE GT PRN ×2 (12:13→18:04)
[2020-11-28] MEDS ORDERED: cefTRIAXone SODIUM 1 GM VIAL ONE (14:31)
[2020-11-28] MEDS: VANCOMYCIN 1 GRAM (PRE-DOCKED) 1,000 MG/250 ML BAG IVPB SCH (14:33)
[2020-11-28] MEDS: CEFTRIAXONE 1 GM in DEXTROSE 5%-WATER - 50 ML IVPB SCH (14:33)
[2020-11-28] MEDS: ALBUTEROL SO4 2.5/IPRATROPIUM 0.5 INH SOL 3 ML VIAL.NEB. NEB PRN (20:10)
[2020-11-28] MEDS: ATORVASTATIN CA 20 MG TABLET (FP) GT SCH (21:27)
[2020-11-29] MEDS: ALBUTEROL SO4 2.5/IPRATROPIUM 0.5 INH SOL 3 ML VIAL.NEB. NEB PRN (02:35)
[2020-11-29] MEDS: VANCOMYCIN 250 MG/5 ML ORAL SOLUTION GT SCH ×3 (05:58→18:23)
[2020-11-29] MEDS ORDERED: DEXTROSE 5%-WATER - 50 ML IVPB ONE (09:22)
[2020-11-29] MEDS ORDERED: PT OWN MED DRAWER 7, Y5N ONE (09:22)
[2020-11-29] MEDS ORDERED: cefTRIAXone SODIUM 1 GM VIAL ONE (09:22)
[2020-11-29] MEDS: ACETAMINOPHEN 650 MG/20.3 ML ORAL SOLUTION (CUPS) GT PRN ×2 (10:09→20:37)
[2020-11-29] MEDS: ATENOLOL 50 MG TABLET (FP) GT SCH (10:09)
[2020-11-29] MEDS: amLODIPine BESYLATE 10 MG TABLET (FP) GT SCH (10:10)
[2020-11-29] MEDS: LEVOTHYROXINE NA 100 MCG TABLET (FP) GT SCH (10:10)
[2020-11-29] MEDS: AMINO ACIDS/PROTEIN HYDROLYS 30 ML LIQUID.PKT PEG SCH ×2 (10:10→18:21)
[2020-11-29] MEDS: CEFTRIAXONE 1 GM in DEXTROSE 5%-WATER - 50 ML IVPB SCH (10:10)
[2020-11-29] MEDS: ENOXAPARIN NA (PORCINE) 40 MG/0.4 ML DISP.SYRIN SQ SCH (10:10)
[2020-11-29] MEDS: FERROUS SO4 300 MG/5 ML ORAL SOLN UNIT DOSE CUPS GT SCH ×2 (10:10→22:25)
[2020-11-29] MEDS: NYSTATIN POWDER 100,000 UNITS/GM - 15 GM TOPICAL POWDER TP SCH ×2 (10:20→22:25)
[2020-11-29 10:45] LABS: BASO % 0.4 % (0-2.0); HEMATOCRIT 20.3 % (32.4-45.2); LYMPH % 7.7 % (8-40); MCH 30.6 pg (25.7-33.7); MCHC 33.2 g/dl (32.0-36.0); MEAN PLT VOLUME 8.6 fl (7.5-11.1); MONO % 6.2 % (3.8-10.2); NEUT % 85.7 % (42.8-82.8); PLATELET COUNT 262 K/MM3 (134-434); RBC 2.21 M/mm3 (3.60-5.2); RDW 15.2 % (11.6-15.6); WHITE BLOOD COUNT 10.4 K/mm3 (4.0-10.0)
[2020-11-29 10:50] LABS: CALCIUM 8.7 mg/dL (8.5-10.1); HEMOGLOBIN 6.7 GM/dL (10.7-15.3)
[2020-11-29 10:51] LABS: ALBUMIN 1.7 g/dl (3.4-5.0); BLOOD UREA NITROGEN 47.6 mg/dL (7-18)
[2020-11-29 10:54] LABS: CREATININE 0.8 mg/dL (0.55-1.3)
[2020-11-29 10:55] LABS: BILIRUBIN,TOTAL 0.2 mg/dL (0.2-1); TOT PROT 5.3 g/dl (6.4-8.2)
[2020-11-29] MEDS: VANCOMYCIN 1 GRAM (PRE-DOCKED) 1,000 MG/250 ML BAG IVPB SCH (12:23)
[2020-11-29] MEDS ORDERED: ATENOLOL 25 MG TABLET (FP) GT ONE (20:31)
[2020-11-29] MEDS: ATORVASTATIN CA 20 MG TABLET (FP) GT SCH (22:25)
[2020-11-30] MEDS: VANCOMYCIN 250 MG/5 ML ORAL SOLUTION GT SCH ×5 (00:06→23:06)
[2020-11-30] MEDS ORDERED: PT OWN MED DRAWER 7, Y5N ONE ×2 (01:09→11:17)
[2020-11-30] MEDS: guaiFENesin/D-M SUGAR-FREE/ACLHOL-FREE 118 ML BOTTLE GT PRN (01:26)
[2020-11-30] MEDS ORDERED: amLODIPine BESYLATE 5 MG TABLET (FP) PO ONE (05:58)
[2020-11-30 10:45] LABS: BASO % 0.3 % (0-2.0); EOS % 0.2 % (0-4.5); HEMATOCRIT 26.8 % (32.4-45.2); HEMOGLOBIN 8.8 GM/dL (10.7-15.3); MCH 29.7 pg (25.7-33.7); MCHC 32.8 g/dl (32.0-36.0); MEAN CELL VOLUME 90.5 fl (80-96); MEAN PLT VOLUME 8.6 fl (7.5-11.1); MONO % 5.8 % (3.8-10.2); NEUT % 85.7 % (42.8-82.8); PLATELET COUNT 311 K/MM3 (134-434); RBC 2.97 M/mm3 (3.60-5.2); RDW 16.3 % (11.6-15.6); WHITE BLOOD COUNT 11.8 K/mm3 (4.0-10.0)
[2020-11-30 11:04] LABS: CALCIUM 9.4 mg/dL (8.5-10.1)
[2020-11-30 11:05] LABS: ALBUMIN 1.9 g/dl (3.4-5.0); BLOOD UREA NITROGEN 34.6 mg/dL (7-18)
[2020-11-30 11:08] LABS: CREATININE 0.6 mg/dL (0.55-1.3)
[2020-11-30 11:09] LABS: BILIRUBIN,TOTAL 0.2 mg/dL (0.2-1); TOT PROT 5.9 g/dl (6.4-8.2)
[2020-11-30] MEDS ORDERED: DEXTROSE 5%-WATER - 50 ML IVPB ONE (11:18)
[2020-11-30] MEDS ORDERED: cefTRIAXone SODIUM 1 GM VIAL ONE (11:18)
[2020-11-30] MEDS: NYSTATIN POWDER 100,000 UNITS/GM - 15 GM TOPICAL POWDER TP SCH ×2 (11:24→23:07)
[2020-11-30] MEDS: CEFTRIAXONE 1 GM in DEXTROSE 5%-WATER - 50 ML IVPB SCH (11:24)
[2020-11-30] MEDS: AMINO ACIDS/PROTEIN HYDROLYS 30 ML LIQUID.PKT PEG SCH ×2 (11:24→17:28)
[2020-11-30] MEDS: LEVOTHYROXINE NA 100 MCG TABLET (FP) GT SCH (11:25)
[2020-11-30] MEDS: FERROUS SO4 300 MG/5 ML ORAL SOLN UNIT DOSE CUPS GT SCH ×2 (11:26→23:06)
[2020-11-30] MEDS: ATENOLOL 50 MG TABLET (FP) GT SCH (11:26)
[2020-11-30] MEDS: ENOXAPARIN NA (PORCINE) 40 MG/0.4 ML DISP.SYRIN SQ SCH (11:26)
[2020-11-30 11:49] LABS: ANISOCYTOSIS 1+; MACROCYTOSIS 0; PLATELET ESTIMATE NORMAL
[2020-11-30] MEDS: amLODIPine BESYLATE 10 MG TABLET (FP) GT SCH (12:34)
[2020-11-30] MEDS: VANCOMYCIN 1 GRAM (PRE-DOCKED) 1,000 MG/250 ML BAG IVPB SCH (12:34)
[2020-11-30] MEDS ORDERED: ALBUTEROL SO4 2.5/IPRATROPIUM 0.5 INH SOL 3 ML VIAL.NEB. NEB ONE (19:38)
[2020-11-30] MEDS: ALBUTEROL SO4 2.5/IPRATROPIUM 0.5 INH SOL 3 ML VIAL.NEB. NEB PRN (19:55)
[2020-11-30] MEDS: ATORVASTATIN CA 20 MG TABLET (FP) GT SCH (23:06)
[2020-12-01] MEDS: VANCOMYCIN 250 MG/5 ML ORAL SOLUTION GT SCH ×3 (06:22→17:52)
[2020-12-01 09:40] LABS: BASO % 0.5 % (0-2.0); HEMOGLOBIN 9.7 GM/dL (10.7-15.3); LYMPH % 9.7 % (8-40); MCH 30.1 pg (25.7-33.7); MCHC 33.5 g/dl (32.0-36.0); MEAN CELL VOLUME 89.9 fl (80-96); MEAN PLT VOLUME 8.1 fl (7.5-11.1); MONO % 5.1 % (3.8-10.2); NEUT % 84.7 % (42.8-82.8); PLATELET COUNT 380 K/MM3 (134-434); RBC 3.23 M/mm3 (3.60-5.2); RDW 16.6 % (11.6-15.6); WHITE BLOOD COUNT 11.4 K/mm3 (4.0-10.0)
[2020-12-01 10:09] LABS: CALCIUM 9.8 mg/dL (8.5-10.1)
[2020-12-01 10:12] LABS: CREATININE 0.5 mg/dL (0.55-1.3)
[2020-12-01 10:13] LABS: BILIRUBIN,TOTAL 0.6 mg/dL (0.2-1); TOT PROT 6.3 g/dl (6.4-8.2)
[2020-12-01] MEDS ORDERED: PT OWN MED DRAWER 7, Y5N ONE (10:51)
[2020-12-01] MEDS ORDERED: DEXTROSE 5%-WATER - 50 ML IVPB ONE (10:52)
[2020-12-01] MEDS ORDERED: cefTRIAXone SODIUM 1 GM VIAL ONE (10:52)
[2020-12-01] MEDS: AMINO ACIDS/PROTEIN HYDROLYS 30 ML LIQUID.PKT PEG SCH ×2 (11:08→17:52)
[2020-12-01] MEDS: amLODIPine BESYLATE 10 MG TABLET (FP) GT SCH (11:08)
[2020-12-01] MEDS: CEFTRIAXONE 1 GM in DEXTROSE 5%-WATER - 50 ML IVPB SCH (11:09)
[2020-12-01] MEDS: ENOXAPARIN NA (PORCINE) 40 MG/0.4 ML DISP.SYRIN SQ SCH (11:09)
[2020-12-01] MEDS: LEVOTHYROXINE NA 100 MCG TABLET (FP) GT SCH (11:09)
[2020-12-01] MEDS: ATENOLOL 50 MG TABLET (FP) GT SCH (11:10)
[2020-12-01] MEDS: FERROUS SO4 300 MG/5 ML ORAL SOLN UNIT DOSE CUPS GT SCH ×2 (11:10→21:54)
[2020-12-01] MEDS: NYSTATIN POWDER 100,000 UNITS/GM - 15 GM TOPICAL POWDER TP SCH ×2 (11:43→21:54)
[2020-12-01 12:22] LABS: ANISOCYTOSIS 0; MACROCYTOSIS 0; PLATELET ESTIMATE NORMAL
[2020-12-01] MEDS: VANCOMYCIN 1 GRAM (PRE-DOCKED) 1,000 MG/250 ML BAG IVPB SCH (14:42)
[2020-12-01 17:10] VITALS: BMI 28.5
[2020-12-01] MEDS: BANATROL PLUS POWDER PACKET PEG SCH (21:54)
[2020-12-01] MEDS: ATORVASTATIN CA 20 MG TABLET (FP) GT SCH (21:54)
[2020-12-01] MEDS ORDERED: BANATROL PLUS POWDER PACKET GT SCH (22:00)
[2020-12-02] MEDS: VANCOMYCIN 250 MG/5 ML ORAL SOLUTION GT SCH ×5 (00:06→23:15)
[2020-12-02] MEDS: guaiFENesin/D-M SUGAR-FREE/ACLHOL-FREE 118 ML BOTTLE GT PRN (02:14)
[2020-12-02] MEDS: BANATROL PLUS POWDER PACKET PEG SCH ×3 (05:03→21:22)
[2020-12-02 09:22] LABS: HEMATOCRIT 28.2 % (32.4-45.2); HEMOGLOBIN 9.5 GM/dL (10.7-15.3); MCH 30.4 pg (25.7-33.7); MCHC 33.6 g/dl (32.0-36.0); MEAN CELL VOLUME 90.6 fl (80-96); MEAN PLT VOLUME 8.8 fl (7.5-11.1); PLATELET COUNT 408 K/MM3 (134-434); RBC 3.11 M/mm3 (3.60-5.2); RDW 16.5 % (11.6-15.6); WHITE BLOOD COUNT 10.5 K/mm3 (4.0-10.0)
[2020-12-02] MEDS ORDERED: PT OWN MED DRAWER 7, Y5N ONE ×4 (10:51→21:03)
[2020-12-02] MEDS ORDERED: cefTRIAXone SODIUM 1 GM VIAL ONE (10:51)
[2020-12-02] MEDS ORDERED: DEXTROSE 5%-WATER - 50 ML IVPB ONE (10:51)
[2020-12-02] MEDS: MULTIVIT-MINERALS ORAL LIQUID GT SCH (11:02)
[2020-12-02] MEDS: CEFTRIAXONE 1 GM in DEXTROSE 5%-WATER - 50 ML IVPB SCH (11:03)
[2020-12-02] MEDS: ENOXAPARIN NA (PORCINE) 40 MG/0.4 ML DISP.SYRIN SQ SCH (11:05)
[2020-12-02] MEDS: AMINO ACIDS/PROTEIN HYDROLYS 30 ML LIQUID.PKT PEG SCH ×2 (11:05→18:14)
[2020-12-02] MEDS: FERROUS SO4 300 MG/5 ML ORAL SOLN UNIT DOSE CUPS GT SCH ×2 (11:05→21:22)
[2020-12-02] MEDS: ATENOLOL 50 MG TABLET (FP) GT SCH (11:06)
[2020-12-02] MEDS: LEVOTHYROXINE NA 100 MCG TABLET (FP) GT SCH (11:06)
[2020-12-02] MEDS: amLODIPine BESYLATE 10 MG TABLET (FP) GT SCH (11:06)
[2020-12-02] MEDS: NYSTATIN POWDER 100,000 UNITS/GM - 15 GM TOPICAL POWDER TP SCH ×2 (11:07→21:22)
[2020-12-02] MEDS: ATORVASTATIN CA 20 MG TABLET (FP) GT SCH (21:22)
[2020-12-03] MEDS ORDERED: PT OWN MED DRAWER 7, Y5N ONE ×2 (01:07→10:01)
[2020-12-03] MEDS ORDERED: guaiFENesin/D-METHORPHAN HB 10 ML UNIT-DOSE CUPS GT PRN (01:10)
[2020-12-03] MEDS: VANCOMYCIN 250 MG/5 ML ORAL SOLUTION GT SCH ×2 (06:05→11:32)
[2020-12-03] MEDS: BANATROL PLUS POWDER PACKET PEG SCH ×2 (06:05→13:55)
[2020-12-03] MEDS ORDERED: LEVOTHYROXINE NA 100 MCG TABLET (FP) GT SCH (07:00)
[2020-12-03 09:14] LABS: ALBUMIN 1.8 g/dl (3.4-5.0); CALCIUM 9.4 mg/dL (8.5-10.1)
[2020-12-03 09:17] LABS: CREATININE 0.5 mg/dL (0.55-1.3)
[2020-12-03 09:19] LABS: BILIRUBIN,TOTAL 0.3 mg/dL (0.2-1); TOT PROT 5.9 g/dl (6.4-8.2)
[2020-12-03] MEDS: FERROUS SO4 300 MG/5 ML ORAL SOLN UNIT DOSE CUPS GT SCH (10:08)
[2020-12-03] MEDS: AMINO ACIDS/PROTEIN HYDROLYS 30 ML LIQUID.PKT PEG SCH (10:09)
[2020-12-03] MEDS: NYSTATIN POWDER 100,000 UNITS/GM - 15 GM TOPICAL POWDER TP SCH (10:09)
[2020-12-03] MEDS: amLODIPine BESYLATE 10 MG TABLET (FP) GT SCH (10:09)
[2020-12-03] MEDS: MULTIVIT-MINERALS ORAL LIQUID GT SCH (10:09)
[2020-12-03] MEDS: ATENOLOL 50 MG TABLET (FP) GT SCH (10:10)
[2020-12-03 15:51] VITALS: BP 131/98; PULSE 80; TEMP 99.1
== END 2020-12-03 16:48 | DRG 870 ==
LOC: JER 07:11 → JERBED 09:39 → J5S 21:46
PROVIDERS: ADMIT Family Medicine; ATTEND Family Medicine
PROC: 5A1955Z Respiratory Ventilation, Greater than 96 Consecutive Hours (ICD-10-PCS; principal; 2020-11-25)
PROC: 3E0G76Z Introduction of Nutritional Substance into Upper GI, Via Natural or Artificial Opening (ICD-10-PCS; 2020-11-25)
PROC: 30233N1 Transfusion of Nonautologous Red Blood Cells into Peripheral Vein, Percutaneous Approach (ICD-10-PCS; 2020-11-29)
DX: A41.89 Other specified sepsis (principal); I50.32 Chronic diastolic (congestive) heart failure; J96.10 Chronic respiratory failure, unspecified whether with hypoxia or hypercapnia; Z99.11 Dependence on respirator [ventilator] status; N39.0 Urinary tract infection, site not specified; E87.2 Acidosis; E87.1 Hypo-osmolality and hyponatremia; A04.72 Enterocolitis due to Clostridium difficile, not specified as recurrent; E78.5 Hyperlipidemia, unspecified; I11.0 Hypertensive heart disease with heart failure; E03.9 Hypothyroidism, unspecified; F03.90 Unspecified dementia, unspecified severity, without behavioral disturbance, psychotic disturbance, mood disturbance, and anxiety; Z93.1 Gastrostomy status; E87.6 Hypokalemia; D64.9 Anemia, unspecified
CPT/HCPCS: 36415; 36430; 70450-TC; 71045-TC-FY; 74018-TC-FY; 80053; 81003; 82140; 82272; 82436; 82550; 82570; 82607; 82728; 82803; 83540; 83550; 83605; 83735; 83930; 83935; 84100; 84133; 84300; 84439; 84443; 84484; 85025; 85027; 85610; 85730; 86850; 86870; 86900; 86901; 86902; 86922; 87040; 87045; 87046; 87070; 87086; 87186; 87205; 87324; 87449; 87493; 87899; 93005; 93010; 94002; 94640; 99285-25; C9803; G0480; J0131; P9058; U0003; U0005

== ENCOUNTER 2021-01-14 18:06 | Inpatient (IN) | payer OTHER ==
[2021-01-14] MEDS ORDERED: ATROPINE SULFATE 1 MG/10 ML DISP.SYRIN ONE (18:47)
[2021-01-14] MEDS ORDERED: ALBUTEROL SO4 2.5/IPRATROPIUM 0.5 INH SOL 3 ML VIAL.NEB. NEB ONE ×4 (18:51→19:51)
[2021-01-14] MEDS ORDERED: GLUCAGON 1 MG KIT ONE ×2 (18:55→19:02)
[2021-01-14] MEDS ORDERED: SODIUM CHLORIDE 0.9% 500 ML INFUS.BAG IV ONE (19:01)
[2021-01-14] MEDS ORDERED: ATROPINE SULFATE 1 MG/10 ML DISP.SYRIN IVPUSH ONE (19:01)
[2021-01-14] MEDS ORDERED: DEXTROSE 50%-WATER - 25 GM/50 ML VIAL IVPUSH ONE (19:01)
[2021-01-14] MEDS ORDERED: GLUCAGON 1 MG KIT IVPUSH ONE (19:01)
[2021-01-14] MEDS ORDERED: CALCIUM GLUCONATE 10% - 1,000 MG/10 ML VIAL IVPUSH ONE (19:01)
[2021-01-14 19:35] LABS: VENOUS BASE EXCESS -3.9 mmol/L (-2-2); VENOUS O2 SATURATION 46.6 % (70-80); VENOUS PCO2 55.5 mmHg (38-52); VENOUS PH 7.252 (7.310-7.410)
[2021-01-14 19:40] LABS: BASO % 0.2 % (0-2.0); HEMATOCRIT 30.5 % (32.4-45.2); HEMOGLOBIN 9.9 GM/dL (10.7-15.3); LYMPH % 2.9 % (8-40); MCH 29.9 pg (25.7-33.7); MCHC 32.5 g/dl (32.0-36.0); MEAN CELL VOLUME 92.1 fl (80-96); MEAN PLT VOLUME 9.5 fl (7.5-11.1); MONO % 1.3 % (3.8-10.2); NEUT % 95.6 % (42.8-82.8); PLATELET COUNT 126 10^3/uL (134-434); RBC 3.31 M/mm3 (3.60-5.2); RDW 19.1 % (11.6-15.6)
[2021-01-14 19:46] LABS: INR 0.95 (0.83-1.09); PROTHROMBIN TIME (PATIENT) 11.7 SEC (9.7-13.0)
[2021-01-14 19:49] LABS: ACTIVATED PTT 39.1 SECONDS (25.2-36.5)
[2021-01-14 19:53] LABS: WHITE BLOOD COUNT 32.7 K/mm3 (4.0-10.0)
[2021-01-14] MEDS ORDERED: VANCOMYCIN 1 GM in D5W (PRE-DOCKED) 1,000 MG/250 ML IVPB ONE (19:53)
[2021-01-14 19:56] LABS: CHLORIDE 94 mmol/L (98-107); SODIUM 128 mmol/L (136-145)
[2021-01-14] MEDS ORDERED: PIPERACILLIN/TAZOB 4.5 GM 4.5 GM in DEXTROSE 5%-WATER 100 ML IVPB ONE (19:56)
[2021-01-14 19:59] LABS: ALBUMIN 2.6 g/dl (3.4-5.0); BLOOD UREA NITROGEN 81.6 mg/dL (7-18); CALCIUM 8.2 mg/dL (8.5-10.1); CO2 21 mmol/L (21-32); MAGNESIUM 2.9 mg/dL (1.8-2.4)
[2021-01-14 20:02] LABS: SGOT/AST 32 U/L (15-37); SGPT/ALT 61 U/L (13-61)
[2021-01-14 20:03] LABS: CREATININE 1.5 mg/dL (0.55-1.3)
[2021-01-14 20:04] LABS: BILIRUBIN,TOTAL 0.2 mg/dL (0.2-1); TOT PROT 6.5 g/dl (6.4-8.2)
[2021-01-14 20:05] LABS: ALK PHOS 147 U/L (45-117); N-TERMINAL BNP 6338.3 pg/ml (5-450)
[2021-01-14] MEDS ORDERED: LACTATED RINGERS SOLUTION 1000 ML INFUS.BAG IV ONE ×2 (20:08→20:40)
[2021-01-14 20:10] LABS: LACTIC ACID 2.5 mmol/L (0.4-2.0)
[2021-01-14 20:10] LABS: ANION GAP 12 MMOL/L (8-16); GLUCOSE,RANDOM 39 mg/dL (74-106)
[2021-01-14] MEDS ORDERED: DOPAMINE 400 MG/D5W - 400,000 MCG/250 ML INFUS.BAG IVPB ONE (20:10)
[2021-01-14] MEDS: DOPAMINE 400 MG/D5W - 400,000 MCG/250 ML INFUS.BAG IVPB SCH (20:23)
[2021-01-14] MEDS ORDERED: LORazepam 2 MG/ML SDV VIAL ONE (21:00)
[2021-01-14 21:10] LABS: ANISOCYTOSIS 2+; MACROCYTOSIS 1+; PLATELET ESTIMATE DECREASED; TOXIC GRANULATION 1+
[2021-01-14] MEDS ORDERED: guaiFENesin 200 MG/10 ML 10 ML UNIT-DOSE CUPS GT PRN (22:07)
[2021-01-14] MEDS ORDERED: NOREPINEPHRINE NS PREMIX 8,000 MCG/500 ML BAG IVPB SCH (22:30)
[2021-01-14 22:36] LABS: CALCIUM 8.8 mg/dL (8.5-10.1)
[2021-01-14 22:37] LABS: BLOOD UREA NITROGEN 74.8 mg/dL (7-18)
[2021-01-14 22:40] LABS: CREATININE 1.5 mg/dL (0.55-1.3)
[2021-01-14 22:41] LABS: PHOSPHOROUS 7.5 mg/dL (2.5-4.9)
[2021-01-14 23:31] LABS: HIV INTERPRETATION NEGATIVE (NEGATIVE)
[2021-01-14] MEDS ORDERED: ACETAMINOPHEN 650 MG/20.3 ML ORAL SOLUTION (CUPS) PO PRN (23:53)
[2021-01-15] MEDS ORDERED: VANCOMYCIN 250 MG/5 ML ORAL SOLUTION GT SCH
[2021-01-15] MEDS ORDERED: PIPERACILLIN/TAZOB 4.5 GM 4.5 GM/100 ML BAG IVPB ONE (00:03)
[2021-01-15] MEDS: PIPERACILLIN/TAZOB 3.375 GM 3.375 GM in DEXTROSE 5%-WATER - 50 ML IVPB SCH ×4 (01:42→17:44)
[2021-01-15] MEDS: levETIRAcetam 500 MG/5 ML INJECTION VIAL IVPB SCH ×3 (01:49→21:48)
[2021-01-15] MEDS: SODIUM CHLORIDE 1,000 ML IV SCH ×2 (01:50→18:50)
[2021-01-15] MEDS: LINEZOLID 600 MG PREMIX BAG 600 MG/300 ML BAG IVPB SCH ×2 (02:03→09:53)
[2021-01-15 02:48] LABS: EPI CELLS >36 /uL (0-25.1); HYALINE CASTS 88 /uL (0-3.1); URINE APPEARANCE TURBID; URINE BACTERIA 379 /uL (0-1359); URINE BILIRUBIN NEGATIVE (NEGATIVE); URINE COLOR DK YELLOW; URINE GLUCOSE (UA) NEGATIVE (NEGATIVE); URINE KETONE NEGATIVE (NEGATIVE); URINE LEUK ESTERASE 3+ (NEGATIVE); URINE NITRITE NEGATIVE (NEGATIVE); URINE PROTEIN 1+ (NEGATIVE); URINE UROBILINOGEN 0.2 mg/dL (0.2-1.0); URINE WBC 17857 /uL (0-25.8)
[2021-01-15] MEDS: VASOPRESSIN 40 UNITS in SODIUM CHLORIDE 98 ML IVPB SCH (03:00)
[2021-01-15] MEDS ORDERED: PIPERACILLIN/TAZOBACTAM 3.375 GM VIAL IVPB ONE ×3 (05:06→17:42)
[2021-01-15] MEDS ORDERED: DEXTROSE 5%-WATER - 50 ML IVPB ONE ×3 (05:06→17:42)
[2021-01-15 05:20] LABS: URINE CRYSTALS NONE SEEN /hpf; URINE RBC 1290.9 /uL (0-23.9); YEAST MANY (NEGATIVE)
[2021-01-15] MEDS ORDERED: HEPARIN NA (PORCINE) 5,000 UNITS/ML 1ML VIAL SQ SCH (06:00)
[2021-01-15] MEDS: LEVOTHYROXINE NA 100 MCG TABLET (FP) GT SCH (07:11)
[2021-01-15 07:23] LABS: BASO % 0.1 % (0-2.0); HEMATOCRIT 28.8 % (32.4-45.2); HEMOGLOBIN 9.3 GM/dL (10.7-15.3); LYMPH % 1.9 % (8-40); MCH 29.7 pg (25.7-33.7); MCHC 32.3 g/dl (32.0-36.0); MEAN CELL VOLUME 91.9 fl (80-96); MEAN PLT VOLUME 9.5 fl (7.5-11.1); MONO % 1.2 % (3.8-10.2); NEUT % 96.8 % (42.8-82.8); PLATELET COUNT 117 10^3/uL (134-434); RBC 3.13 M/mm3 (3.60-5.2); RDW 18.4 % (11.6-15.6)
[2021-01-15 07:25] LABS: WHITE BLOOD COUNT 43.3 K/mm3 (4.0-10.0)
[2021-01-15] MEDS: NOREPINEPHRINE NS PREMIX 8,000 MCG/500 ML BAG IVPB SCH (07:30)
[2021-01-15 07:50] LABS: CHLORIDE 99 mmol/L (98-107); SODIUM 133 mmol/L (136-145)
[2021-01-15 07:51] LABS: MAGNESIUM 2.5 mg/dL (1.8-2.4)
[2021-01-15 07:52] LABS: CALCIUM 8.3 mg/dL (8.5-10.1)
[2021-01-15 07:53] LABS: ALBUMIN 2.5 g/dl (3.4-5.0); ANION GAP 12 MMOL/L (8-16); CO2 22 mmol/L (21-32); GLUCOSE,RANDOM 73 mg/dL (74-106)
[2021-01-15 07:54] LABS: LIPASE 681 U/L (73-393)
[2021-01-15 07:55] LABS: CREATININE 1.4 mg/dL (0.55-1.3); SGOT/AST 33 U/L (15-37); SGPT/ALT 53 U/L (13-61)
[2021-01-15 07:56] LABS: PHOSPHOROUS 7.2 mg/dL (2.5-4.9)
[2021-01-15 07:58] LABS: BILIRUBIN,TOTAL 0.4 mg/dL (0.2-1)
[2021-01-15 07:59] LABS: ALK PHOS 158 U/L (45-117)
[2021-01-15 08:00] LABS: TOT PROT 6.3 g/dl (6.4-8.2)
[2021-01-15] MEDS: NYSTATIN POWDER 100,000 UNITS/GM - 15 GM TOPICAL POWDER TP SCH ×2 (09:57→21:48)
[2021-01-15] MEDS: MUPIROCIN 2% TOPICAL OINTMENT FOR DECOLONIZATION NS SCH ×2 (09:57→21:49)
[2021-01-15 10:18] LABS: ANISOCYTOSIS 2+; MACROCYTOSIS 1+; PLATELET ESTIMATE DECREASED
[2021-01-15] MEDS ORDERED: PIPERACILLIN/TAZOBACTAM 2.25 GM VIAL IVPB ONE (12:26)
[2021-01-15] MEDS: PIPERACILLIN/TAZOB 2.25 GM 2.25 GM in DEXTROSE 5%-WATER - 50 ML IVPB SCH ×2 (12:27→20:34)
[2021-01-15] MEDS: DOPAMINE 400 MG/D5W - 400,000 MCG/250 ML INFUS.BAG IVPB SCH ×2 (12:28→18:51)
[2021-01-15] MEDS: LACTOBACILLUS ACIDOPHILUS 1 TABLET GT SCH ×2 (12:28→15:52)
[2021-01-15] MEDS: MULTIVIT-MINERALS ORAL LIQUID GT SCH (15:52)
[2021-01-15] MEDS: ATORVASTATIN CA 20 MG TABLET (FP) GT SCH (21:48)
[2021-01-15] MEDS: CHLORHEXIDINE GLUCONATE 4% CLEANSER FOR DECOLONIZATION TP SCH (21:49)
[2021-01-16] MEDS ORDERED: DEXTROSE 5%-WATER - 50 ML IVPB ONE ×4 (02:11→22:50)
[2021-01-16] MEDS ORDERED: PIPERACILLIN/TAZOBACTAM 3.375 GM VIAL IVPB ONE ×4 (02:11→22:50)
[2021-01-16] MEDS: PIPERACILLIN/TAZOB 3.375 GM 3.375 GM in DEXTROSE 5%-WATER - 50 ML IVPB SCH ×3 (03:00→17:14)
[2021-01-16] MEDS: LEVOTHYROXINE NA 100 MCG TABLET (FP) GT SCH (06:06)
[2021-01-16 06:55] LABS: BASO % 0.3 % (0-2.0); HEMATOCRIT 26.7 % (32.4-45.2); HEMOGLOBIN 8.4 GM/dL (10.7-15.3); MCH 29.5 pg (25.7-33.7); MCHC 31.5 g/dl (32.0-36.0); MEAN CELL VOLUME 93.8 fl (80-96); MEAN PLT VOLUME 9.2 fl (7.5-11.1); MONO % 1.5 % (3.8-10.2); NEUT % 97.2 % (42.8-82.8); PLATELET COUNT 80 10^3/uL (134-434); RBC 2.85 M/mm3 (3.60-5.2)
[2021-01-16 07:11] LABS: WHITE BLOOD COUNT 40.7 K/mm3 (4.0-10.0)
[2021-01-16 07:15] LABS: CHLORIDE 101 mmol/L (98-107); SODIUM 129 mmol/L (136-145)
[2021-01-16 07:19] LABS: CALCIUM 7.1 mg/dL (8.5-10.1)
[2021-01-16 07:20] LABS: BLOOD UREA NITROGEN 74.6 mg/dL (7-18); CO2 18 mmol/L (21-32); MAGNESIUM 2.4 mg/dL (1.8-2.4)
[2021-01-16 07:23] LABS: PHOSPHOROUS 8.2 mg/dL (2.5-4.9); SGOT/AST 35 U/L (15-37); SGPT/ALT 43 U/L (13-61)
[2021-01-16 07:25] LABS: BILIRUBIN,TOTAL 0.7 mg/dL (0.2-1); TOT PROT 5.6 g/dl (6.4-8.2)
[2021-01-16 07:26] LABS: ALK PHOS 132 U/L (45-117)
[2021-01-16 07:33] LABS: ANION GAP 10 MMOL/L (8-16); GLUCOSE,RANDOM 50 mg/dL (74-106)
[2021-01-16] MEDS ORDERED: CALCIUM GLUCONATE 10% - 1,000 MG/10 ML VIAL IVPUSH ONE ×3 (07:45→22:19)
[2021-01-16] MEDS ORDERED: DEXTROSE 50%-WATER - 25 GM/50 ML VIAL IVPUSH ONE ×3 (07:45→22:19)
[2021-01-16] MEDS ORDERED: INSULIN REGULAR HUMAN 100 UNITS/ML *VIAL IVPUSH ONE ×3 (08:00→22:19)
[2021-01-16] MEDS ORDERED: PT OWN MED DRAWER 7, Y5N ONE ×2 (08:46→12:47)
[2021-01-16] MEDS: DOPAMINE 400 MG/D5W - 400,000 MCG/250 ML INFUS.BAG IVPB SCH ×4 (08:52→20:38)
[2021-01-16] MEDS: NOREPINEPHRINE NS PREMIX 8,000 MCG/500 ML BAG IVPB SCH ×3 (08:53→19:54)
[2021-01-16] MEDS: ACETAMINOPHEN 650 MG/20.3 ML ORAL SOLUTION (CUPS) GT PRN ×2 (08:54→17:14)
[2021-01-16] MEDS: MULTIVIT-MINERALS ORAL LIQUID GT SCH (09:07)
[2021-01-16] MEDS: LACTOBACILLUS ACIDOPHILUS 1 TABLET GT SCH (09:07)
[2021-01-16] MEDS: MUPIROCIN 2% TOPICAL OINTMENT FOR DECOLONIZATION NS SCH ×2 (09:07→21:24)
[2021-01-16] MEDS: levETIRAcetam 500 MG/5 ML INJECTION VIAL IVPB SCH ×2 (09:08→21:21)
[2021-01-16] MEDS ORDERED: DEXTROSE 50%-WATER 25 GM/50 ML DISP.SYRIN ONE ×2 (09:17→15:14)
[2021-01-16] MEDS: NYSTATIN POWDER 100,000 UNITS/GM - 15 GM TOPICAL POWDER TP SCH ×2 (09:24→21:24)
[2021-01-16 10:30] LABS: ANISOCYTOSIS 0; MACROCYTOSIS 0; PLATELET ESTIMATE DECREASED
[2021-01-16] MEDS ORDERED: VASOPRESSIN 20 UNITS/ML VIAL IV ONE (11:44)
[2021-01-16] MEDS: VASOPRESSIN 40 UNITS in SODIUM CHLORIDE 98 ML IVPB SCH ×2 (13:18→19:54)
[2021-01-16] MEDS ORDERED: SODIUM ZIRCONIUM CYCLOSILICATE (LOKELMA) 5 GM PACKET PO SCH (14:15)
[2021-01-16 14:49] LABS: CHLORIDE 100 mmol/L (98-107); SODIUM 129 mmol/L (136-145)
[2021-01-16 14:51] LABS: CALCIUM 7.1 mg/dL (8.5-10.1)
[2021-01-16 14:52] LABS: BLOOD UREA NITROGEN 78.7 mg/dL (7-18)
[2021-01-16 14:54] LABS: CO2 16 mmol/L (21-32)
[2021-01-16 14:56] LABS: ANION GAP 13 MMOL/L (8-16); GLUCOSE,RANDOM 48 mg/dL (74-106)
[2021-01-16] MEDS ORDERED: DEXTROSE 5%-NORMAL SALINE 1,000 ML IV SCH ×2 (15:15→15:24)
[2021-01-16 16:09] VITALS: BMI 34.9
[2021-01-16] MEDS ORDERED: SODIUM BICARBONATE 8.4% 50 MEQ/50 ML DISP.SYRIN IVPUSH ONE (18:33)
[2021-01-16] MEDS: DEXTROSE 5%-0.45% SALINE 925 ML with SODIUM BICARBONATE 8.4% - 75 MEQ IV SCH (20:34)
[2021-01-16] MEDS: SODIUM CHLORIDE 1,000 ML IV SCH (20:38)
[2021-01-16] MEDS: SODIUM ZIRCONIUM CYCLOSILICATE (LOKELMA) 5 GM PACKET PO SCH (21:20)
[2021-01-16] MEDS: ATORVASTATIN CA 20 MG TABLET (FP) GT SCH (21:20)
[2021-01-16] MEDS: CHLORHEXIDINE GLUCONATE 4% CLEANSER FOR DECOLONIZATION TP SCH (21:24)
[2021-01-17] MEDS: PIPERACILLIN/TAZOB 3.375 GM 3.375 GM in DEXTROSE 5%-WATER - 50 ML IVPB SCH ×3 (01:18→18:23)
[2021-01-17] MEDS: VASOPRESSIN 40 UNITS in SODIUM CHLORIDE 98 ML IVPB SCH ×2 (01:18→21:08)
[2021-01-17] MEDS ORDERED: NOREPINEPHRINE BITARTRATE 4 MG/4 ML ML IV ONE ×3 (02:29→20:13)
[2021-01-17] MEDS ORDERED: NOREPINEPHRINE D5W PREMIX 16,000 MCG/500 ML BAG IVPB ONE (02:29)
[2021-01-17] MEDS: NOREPINEPHRINE NS PREMIX 8,000 MCG/500 ML BAG IVPB SCH ×2 (02:55→09:19)
[2021-01-17] MEDS: DEXTROSE 5%-0.45% SALINE 925 ML with SODIUM BICARBONATE 8.4% - 75 MEQ IV SCH (05:05)
[2021-01-17] MEDS: LEVOTHYROXINE NA 100 MCG TABLET (FP) GT SCH (06:11)
[2021-01-17 07:35] LABS: HEMATOCRIT 21.1 % (32.4-45.2); MCHC 31.7 g/dl (32.0-36.0); MEAN CELL VOLUME 94.4 fl (80-96); MEAN PLT VOLUME 9.2 fl (7.5-11.1); RBC 2.23 M/mm3 (3.60-5.2); RDW 18.9 % (11.6-15.6); WHITE BLOOD COUNT 24.2 K/mm3 (4.0-10.0)
[2021-01-17 07:48] LABS: HEMOGLOBIN 6.7 GM/dL (10.7-15.3); PLATELET COUNT 35 10^3/uL (134-434)
[2021-01-17] MEDS ORDERED: PIPERACILLIN/TAZOBACTAM 3.375 GM VIAL IVPB ONE ×3 (08:01→23:50)
[2021-01-17] MEDS ORDERED: PT OWN MED DRAWER 7, Y5N ONE (08:01)
[2021-01-17] MEDS ORDERED: DEXTROSE 5%-WATER - 50 ML IVPB ONE ×3 (08:02→23:50)
[2021-01-17] MEDS: levETIRAcetam 500 MG/5 ML INJECTION VIAL IVPB SCH ×2 (09:20→21:08)
[2021-01-17] MEDS: SODIUM ZIRCONIUM CYCLOSILICATE (LOKELMA) 5 GM PACKET PO SCH ×2 (09:20→21:08)
[2021-01-17] MEDS: MUPIROCIN 2% TOPICAL OINTMENT FOR DECOLONIZATION NS SCH ×2 (09:21→21:07)
[2021-01-17] MEDS: LACTOBACILLUS ACIDOPHILUS 1 TABLET GT SCH (09:21)
[2021-01-17] MEDS: NYSTATIN POWDER 100,000 UNITS/GM - 15 GM TOPICAL POWDER TP SCH ×2 (09:22→21:12)
[2021-01-17] MEDS: MULTIVIT-MINERALS ORAL LIQUID GT SCH ×2 (09:27→10:04)
[2021-01-17] MEDS: DOPAMINE 400 MG/D5W - 400,000 MCG/250 ML INFUS.BAG IVPB SCH (09:45)
[2021-01-17 09:55] LABS: CHLORIDE 100 mmol/L (98-107); SODIUM 131 mmol/L (136-145)
[2021-01-17 09:58] LABS: ANION GAP 14 MMOL/L (8-16); BLOOD UREA NITROGEN 79.7 mg/dL (7-18); CO2 18 mmol/L (21-32); GLUCOSE,RANDOM 116 mg/dL (74-106)
[2021-01-17 09:59] LABS: MAGNESIUM 2.3 mg/dL (1.8-2.4)
[2021-01-17 10:00] LABS: SGPT/ALT 32 U/L (13-61)
[2021-01-17 10:01] LABS: CREATININE 2.1 mg/dL (0.55-1.3); SGOT/AST 66 U/L (15-37)
[2021-01-17 10:02] LABS: BILIRUBIN,TOTAL 0.6 mg/dL (0.2-1); PHOSPHOROUS 8.5 mg/dL (2.5-4.9); TOT PROT 4.5 g/dl (6.4-8.2)
[2021-01-17 10:03] LABS: ALK PHOS 107 U/L (45-117)
[2021-01-17 10:06] LABS: ALBUMIN 1.5 g/dl (3.4-5.0); CALCIUM 6.8 mg/dL (8.5-10.1)
[2021-01-17 10:42] LABS: MCH 30.2 pg (25.7-33.7); MCHC 32.2 g/dl (32.0-36.0); MEAN PLT VOLUME 8.3 fl (7.5-11.1); RBC 2.13 M/mm3 (3.60-5.2); RDW 18.5 % (11.6-15.6); WHITE BLOOD COUNT 19.8 K/mm3 (4.0-10.0)
[2021-01-17] MEDS ORDERED: [UNRECOGNIZED DRUG - OTHER] IV SCH (10:42)
[2021-01-17] MEDS ORDERED: SODIUM BICARBONATE IV SCH (10:42)
[2021-01-17] MEDS ORDERED: DEXTROSE IV SCH (10:42)
[2021-01-17 10:47] LABS: HEMOGLOBIN 6.4 GM/dL (10.7-15.3)
[2021-01-17 10:48] LABS: PLATELET COUNT 32 10^3/uL (134-434)
[2021-01-17] MEDS ORDERED: AMIODARONE IN DEXTROSE,ISO-OSM 360 MG/200 ML BAG ONE (12:51)
[2021-01-17] MEDS: SODIUM BICARBONATE 8.4% - 150 MEQ in DEXTROSE 5%-WATER - 950 ML IV SCH (13:04)
[2021-01-17] MEDS: CHLORHEXIDINE GLUCONATE 4% CLEANSER FOR DECOLONIZATION TP SCH (21:07)
[2021-01-17] MEDS: ATORVASTATIN CA 20 MG TABLET (FP) GT SCH (21:12)
[2021-01-17 21:49] LABS: HEMATOCRIT 23.2 % (32.4-45.2); HEMOGLOBIN 7.7 GM/dL (10.7-15.3); MCH 30.5 pg (25.7-33.7); MEAN CELL VOLUME 92.2 fl (80-96); MEAN PLT VOLUME 7.7 fl (7.5-11.1); RBC 2.52 M/mm3 (3.60-5.2); RDW 16.8 % (11.6-15.6); WHITE BLOOD COUNT 17.8 K/mm3 (4.0-10.0)
[2021-01-17 21:50] LABS: PLATELET COUNT 22 10^3/uL (134-434)
[2021-01-18] MEDS: SODIUM BICARBONATE 8.4% - 150 MEQ in DEXTROSE 5%-WATER - 950 ML IV SCH ×2 (01:00→09:30)
[2021-01-18] MEDS: PIPERACILLIN/TAZOB 3.375 GM 3.375 GM in DEXTROSE 5%-WATER - 50 ML IVPB SCH (01:19)
[2021-01-18] MEDS: VASOPRESSIN 40 UNITS in SODIUM CHLORIDE 98 ML IVPB SCH (02:00)
[2021-01-18] MEDS: LEVOTHYROXINE NA 100 MCG TABLET (FP) GT SCH (05:59)
[2021-01-18 07:27] LABS: HEMOGLOBIN 7.5 GM/dL (10.7-15.3); MCH 30.4 pg (25.7-33.7); MCHC 32.8 g/dl (32.0-36.0); MEAN CELL VOLUME 92.8 fl (80-96); MEAN PLT VOLUME 8.1 fl (7.5-11.1); RBC 2.47 M/mm3 (3.60-5.2); RDW 17.2 % (11.6-15.6); WHITE BLOOD COUNT 17.9 K/mm3 (4.0-10.0)
[2021-01-18 07:50] LABS: PLATELET COUNT 16 10^3/uL (134-434)
[2021-01-18 08:04] LABS: CHLORIDE 98 mmol/L (98-107); SODIUM 135 mmol/L (136-145)
[2021-01-18 08:12] LABS: ALBUMIN 1.4 g/dl (3.4-5.0)
[2021-01-18 08:13] LABS: ANION GAP 15 MMOL/L (8-16); BLOOD UREA NITROGEN 70.8 mg/dL (7-18); CO2 21 mmol/L (21-32); GLUCOSE,RANDOM 185 mg/dL (74-106)
[2021-01-18 08:16] LABS: CREATININE 2.1 mg/dL (0.55-1.3); PHOSPHOROUS 8.2 mg/dL (2.5-4.9); SGOT/AST 40 U/L (15-37); SGPT/ALT 27 U/L (13-61)
[2021-01-18 08:17] LABS: BILIRUBIN,TOTAL 0.7 mg/dL (0.2-1); TOT PROT 4.2 g/dl (6.4-8.2)
[2021-01-18 08:18] LABS: ALK PHOS 110 U/L (45-117)
[2021-01-18 08:31] LABS: CALCIUM 5.9 mg/dL (8.5-10.1)
[2021-01-18] MEDS ORDERED: CALCIUM GLUCONATE 10% - 1,000 MG/10 ML VIAL IVPB ONE (09:15)
[2021-01-18] MEDS: levETIRAcetam 500 MG/5 ML INJECTION VIAL IVPB SCH (10:45)
[2021-01-18] MEDS: SODIUM ZIRCONIUM CYCLOSILICATE (LOKELMA) 5 GM PACKET PO SCH (10:45)
[2021-01-18] MEDS: MULTIVIT-MINERALS ORAL LIQUID GT SCH (10:46)
[2021-01-18] MEDS: LACTOBACILLUS ACIDOPHILUS 1 TABLET GT SCH (10:47)
[2021-01-18] MEDS: MUPIROCIN 2% TOPICAL OINTMENT FOR DECOLONIZATION NS SCH (10:47)
[2021-01-18] MEDS: NYSTATIN POWDER 100,000 UNITS/GM - 15 GM TOPICAL POWDER TP SCH (10:47)
[2021-01-18] MEDS ORDERED: LEVOTHYROXINE SODIUM 100 MCG VIAL IVPUSH SCH (11:00)
[2021-01-18 11:44] LABS: INR 1.08 (0.83-1.09); PROTHROMBIN TIME (PATIENT) 13.2 SEC (9.7-13.0)
[2021-01-18 11:46] LABS: ACTIVATED PTT 33.2 SECONDS (25.2-36.5)
[2021-01-18] MEDS ORDERED: SODIUM BICARBONATE 8.4% - 150 MEQ in DEXTROSE 5%-WATER - 950 ML IV SCH ×2 (11:53→12:27)
[2021-01-18] MEDS ORDERED: PT OWN MED DRAWER 7, Y5N ONE (12:03)
[2021-01-18] MEDS ORDERED: PIPERACILLIN/TAZOB 3.375 GM 3.375 GM in DEXTROSE 5%-WATER - 50 ML IVPB SCH (12:15)
[2021-01-18 13:27] LABS: VENOUS BASE EXCESS -6.1 mmol/L (-2-2); VENOUS O2 SATURATION 73.3 % (70-80); VENOUS PCO2 56.2 mmHg (38-52); VENOUS PH 7.205 (7.310-7.410)
[2021-01-18] MEDS ORDERED: NOREPINEPHRINE BITARTRATE 4 MG/4 ML ML IV ONE ×2 (13:33→19:15)
[2021-01-18] MEDS: NOREPINEPHRINE NS PREMIX 8,000 MCG/500 ML BAG IVPB SCH (14:15)
[2021-01-18] MEDS ORDERED: PIPERACILLIN/TAZOBACTAM 3.375 GM VIAL IVPB ONE (16:39)
[2021-01-18] MEDS ORDERED: DEXTROSE 5%-WATER - 50 ML IVPB ONE (16:40)
[2021-01-18 16:44] LABS: ARTERIAL BLD GAS O2 SATURATION 85.9 mmHg (95-98); ARTERIAL BLOOD GAS BASE EXCESS -2.8 mmol/L (-2-2); ARTERIAL BLOOD GAS PO2 58.3 mmHg (80-100); ARTERIAL BLOOD GAS pH 7.264 (7.350-7.450)
[2021-01-18 17:40] VITALS: TEMP 97
[2021-01-18] MEDS ORDERED: VASOPRESSIN 20 UNITS/ML VIAL IV ONE (19:15)
[2021-01-18 19:41] VITALS: BP 71/50
[2021-01-18] MEDS ORDERED: MORPHINE SULFATE/0.9% NACL/PF 100 MG/100 ML BAG IVPB SCH (19:45)
[2021-01-18 19:47] VITALS: PULSE 70
[2021-01-19] MEDS ORDERED: SODIUM ZIRCONIUM CYCLOSILICATE (LOKELMA) 10 GM PACKET PO SCH (10:00)
== END 2021-01-18 22:00 | disposition expired | DRG 870 ==
LOC: JER 18:06 → JERBED 21:46 → JICU 01-15 01:19
PROVIDERS: ADMIT Internal Medicine; ATTEND Family Medicine
PROC: 06HN33Z Insertion of Infusion Device into Left Femoral Vein, Percutaneous Approach (ICD-10-PCS; principal; 2021-01-14)
PROC: 5A1955Z Respiratory Ventilation, Greater than 96 Consecutive Hours (ICD-10-PCS; 2021-01-14)
DX: A41.89 Other specified sepsis (principal); J96.90 Respiratory failure, unspecified, unspecified whether with hypoxia or hypercapnia; G93.41 Metabolic encephalopathy; R65.21 Severe sepsis with septic shock; N17.9 Acute kidney failure, unspecified; J90 Pleural effusion, not elsewhere classified; I50.32 Chronic diastolic (congestive) heart failure; Z99.11 Dependence on respirator [ventilator] status; N39.0 Urinary tract infection, site not specified; E87.1 Hypo-osmolality and hyponatremia; A04.72 Enterocolitis due to Clostridium difficile, not specified as recurrent; E87.2 Acidosis; Z68.41 Body mass index [BMI] 40.0-44.9, adult; E66.9 Obesity, unspecified; R41.82 Altered mental status, unspecified; H66.90 Otitis media, unspecified, unspecified ear; E87.5 Hyperkalemia; E78.5 Hyperlipidemia, unspecified; F03.90 Unspecified dementia, unspecified severity, without behavioral disturbance, psychotic disturbance, mood disturbance, and anxiety; R74.8 Abnormal levels of other serum enzymes; D63.1 Anemia in chronic kidney disease; R56.9 Unspecified convulsions; N83.8 Other noninflammatory disorders of ovary, fallopian tube and broad ligament; I11.0 Hypertensive heart disease with heart failure; E03.9 Hypothyroidism, unspecified; E83.39 Other disorders of phosphorus metabolism; D69.6 Thrombocytopenia, unspecified; I95.9 Hypotension, unspecified; D63.8 Anemia in other chronic diseases classified elsewhere; N83.201 Unspecified ovarian cyst, right side; D72.829 Elevated white blood cell count, unspecified; Z93.0 Tracheostomy status; Z93.1 Gastrostomy status
CPT/HCPCS: 36415; 36430; 36511; 36600; 70450-TC; 71045-TC-FY; 71250-TC; 74176-TC; 80048; 80053; 80074; 81003; 82728; 82803; 82962; 83540; 83550; 83605; 83690; 83735; 83880; 84100; 84132; 84439; 84443; 84481; 84484; 85025; 85027; 85384; 85610; 85730; 86304; 86850; 86900; 86901; 86922; 87040; 87070; 87077; 87086; 87186; 87205; 87389; 87804; 87899; 93005; 93010; 94002; 95816; 99291; C9803; P9034; P9038; P9058; U0003; U0005